=== PATIENT | male | born 1950 | race Hispanic/Latino ===

== ENCOUNTER 2016-12-14 06:03 | Observation (INO) | payer MEDICARE ==
[2016-11-30 13:37] VITALS: BMI 22.2
[2016-12-14] MEDS ORDERED: Lidocaine 4% (Laryng-O-Jet) Kit MM ONE (07:57)
[2016-12-14] MEDS ORDERED: Succinylcholine 200 mg/10 ml Inj IV ONE (07:57)
[2016-12-14] MEDS ORDERED: Propofol 10 mg/ml Inj (20 ML) ONE (07:57)
[2016-12-14] MEDS ORDERED: Rocuronium 10 mg/ml (5 ml) ONE (07:57)
[2016-12-14] MEDS ORDERED: Lactated Ringer's 1,000 ML IV ONE ×2 (07:59→12:50)
--- NOTE | 2016-12-14 07:59 | CP.PCM.CON ---
History of Present Illness - History of Present Illness History of Present Illness: 66 yo male presents with ongoing LBP x 1 year sudden onset moving furniture radiation to LLE x 6 mos with worsening gait,paresthesias,tripping and Left foot drop 2-3 months ago,seen by PMD and neurologist,EMG LLE + nerve injury,no relief with meds and PT,outpt MRI showing multi level lumbar spondylosis with HNP L4-5,referred to neurosurgery for further eval,denies B/B incontinance or pelvic paresthesias Review of Systems - Review of Systems Systems not reviewed;Unavailable: Acuity of Condition - Cardiovascular Additional comments: Hx Htn,denies CP,arrthymia or PA - Respiratory Additional comments: Hx COPD/heavy Snowmaker Smoker - Musculoskeletal Musculoskeletal: Muscle Weakness, Numbness, Radiating Pain into Limb - Neurological Neurological: As Per HPI Past Patient History - Infectious Disease Hx of Infectious Diseases: None - Tetanus Immunizations Tetanus Immunization: Unknown - Past Medical History & Family History Past Medical History?: Yes - Past Social History Smoking Status: Heavy Smoker > 10 Cigarettes Daily 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,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 Alcohol: > 2 Drinks/Day Drugs: Denies Home Situation {Lives}: With Family Domestic Violence: Negative - CARDIAC Hx Cardiac Disorders: Yes Hx Hypertension: Yes - PULMONARY Hx Respiratory Disorders: Yes Hx Chronic Obstructive Pulmonary Disease (COPD): Yes - NEUROLOGICAL Hx Neurological Disorder: No - HEENT Hx HEENT Problems: No - RENAL Hx Chronic Kidney Disease: No - ENDOCRINE/METABOLIC Hx Endocrine Disorders: No - HEMATOLOGICAL/ONCOLOGICAL Hx Anemia: Yes Hx Blood Transfusions: No - INTEGUMENTARY Hx Dermatological Problems: No - MUSCULOSKELETAL/RHEUMATOLOGICAL Hx Musculoskeletal Disorders: Yes Hx Back Pain: Yes Hx Falls: No - GASTROINTESTINAL Hx Gastrointestinal Disorders: No - GENITOURINARY/GYNECOLOGICAL Hx Genitourinary Disorders: No - PSYCHIATRIC Hx Psychophysiologic Disorder: No Hx Substance Use: No - SURGICAL HISTORY Hx Surgeries: No - ANESTHESIA Hx Anesthesia: No Hx Anesthesia Reactions: No Hx Malignant Hyperthermia: No Has any member of the family had a problem w/ anesthesia?: No Meds Home Medications: Home Medication List Medication Instructions Recorded Confirmed Type Acetaminophen with Codeine 1 tab PO Q6 #20 tab 12/15/16 Rx [Tylenol with Codeine No. 3 300 mg-30 mg] Allergies/Adverse Reactions: Allergies Allergy/AdvReac Type Severity Reaction Status Date / Time No Known Allergies Allergy Verified 04/11/16 22:46 Physical Exam - Constitutional Appears: Well, Non-toxic, No Acute Distress - Head Exam Head Exam: ATRAUMATIC, NORMAL INSPECTION, NORMOCEPHALIC - Eye Exam Eye Exam: EOMI, Normal appearance, PERRL Pupil Exam: NORMAL ACCOMODATION - ENT Exam ENT Exam: Mucous Membranes Moist - Neck Exam Neck exam: Positive for: Normal Inspection - Respiratory Exam Respiratory Exam: Clear to Auscultation Bilateral - Cardiovascular Exam Cardiovascular Exam: REGULAR RHYTHM - GI/Abdominal Exam GI & Abdominal Exam: Normal Bowel Sounds, Soft - Rectal Exam Rectal Exam: Deferred - Extremities Exam Extremities exam: Positive for: pedal pulses present Additional comments: calves soft,NT - Back Exam Back exam: vertebral tenderness - Neurological Exam Neurological exam: Alert, Oriented x3 Additional comments: DAILY x 4 with good strength,left dorsiflexion weakness 2+/5 with decreased sensation left L4-5 dermatome,plantar flexion 5/5,no pelvic paresthesias - Psychiatric Exam Psychiatric exam: Normal Affect, Normal Mood - Skin Skin Exam: Dry, Intact Results - Labs Result Diagrams: 12/15/16 05:00 12/15/16 05:00 Labs: Laboratory Results - last 24 hr 12/14/16 07:20 BBK History Checked No verified bt Assessment & Plan - Assessment and Plan (Free Text) Assessment: 66 yo male with Multi Level lumbar spondylosis,left L4-5 HNP, LLE radiculapathy and Foot Drop Plan: here today for proposed Decompressive Lumbar Laminectomy/Discectomy L4-5 risks and benefits d/w pt,informed that symptoms may or not improve with surgery, expressed understanding and wishes to proceed.
[2016-12-14] MEDS ORDERED: Lidocaine 1% Inj (20ml) ONE (08:02)
[2016-12-14] MEDS ORDERED: Bupivacaine HCl 0.5% PF (30 ml) Inj ONE (08:02)
[2016-12-14] MEDS ORDERED: Thrombin Topical 5,000 IU Spray Kit ONE (08:03)
[2016-12-14] MEDS ORDERED: Absorbable Gelatin Sponge Size 100 ONE (08:03)
[2016-12-14] MEDS ORDERED: Bacitracin Ointment 30 GM TUBE ONE (08:03)
[2016-12-14] MEDS ORDERED: Midazolam 2 MG/2 ML VIAL ONE (08:06)
[2016-12-14] MEDS ORDERED: Bupivacaine 0.5% Inj(30mL) ONE (08:23)
[2016-12-14] MEDS ORDERED: Thrombin Topical 5,000 IU Spray Kit TOP ONE (09:00)
[2016-12-14] MEDS ORDERED: Lidocaine 1% Inj (20ml) IJ ONE (09:00)
[2016-12-14] MEDS ORDERED: Absorbable Gelatin Sponge Size 100 TP ONE (09:00)
[2016-12-14] MEDS ORDERED: ePHEDrine 50 mg/ml Inj ONE (09:19)
[2016-12-14] MEDS ORDERED: Neostigmine Methylsulfate 3mg/3ml Syringe IV ONE ×2 (10:15→10:17)
[2016-12-14] MEDS ORDERED: Bupivacaine 0.5% 50 ML IJ ONE (10:30)
[2016-12-14] MEDS ORDERED: HYDROmorphone 0.5 mg/0.5 ml ISec IVP PRN (10:46)
[2016-12-14] MEDS ORDERED: Oxycodone/Acetaminophen 5/325 mg Tab PO PRN ×2 (12:56→21:19)
[2016-12-14] MEDS: Lactated Ringer's 1,000 ML IV SCH (13:00)
[2016-12-14] MEDS ORDERED: Albuterol 0.083% Inhal Sol (2.5 mg/3 mL) UD INH PRN (13:00)
[2016-12-14] MEDS ORDERED: Pneumococcal 23-Valent Vaccine IM ONE (15:38)
[2016-12-14] MEDS: ceFAZolin 1 GM in Sodium Chloride 0.9% 100 ML IVPB SCH (16:53)
--- NOTE | 2016-12-14 17:48 | CP.PCM.HP ---
History of Present Illness - History of Present Illness History of Present Illness: 66 yo male presents with ongoing LBP x 1 year sudden onset moving furniture radiation to LLE x 6 mos with worsening gait,paresthesias,tripping and Left foot drop 2-3 months ago,seen by PMD and neurologist,EMG LLE + nerve injury,no relief with meds and PT,outpt MRI showing multi level lumbar spondylosis, referred to neurosurgery for further evaluation,denies B/B incontinance or pelvic paresthesias Patient under went to several lumbar laminectomy for decompression. At present in post OP. Present on Admission - Present on Admission Any Indicators Present on Admission: No Review of Systems - Constitutional Constitutional: As Per HPI - EENT Eyes: As Per HPI - Cardiovascular Cardiovascular: As Per HPI - Respiratory Respiratory: As Per HPI - Gastrointestinal Gastrointestinal: As Per HPI - Musculoskeletal Musculoskeletal: As Per HPI - Integumentary Integumentary: As Per HPI - Neurological Neurological: As Per HPI Past Patient History - Past Medical History & Family History Past Medical History?: Yes - Past Social History Smoking Status: Current Some Days Smoker - CARDIAC Hx Cardiac Disorders: Yes Hx Hypertension: Yes - PULMONARY Hx Respiratory Disorders: Yes Hx Chronic Obstructive Pulmonary Disease (COPD): Yes - NEUROLOGICAL Hx Neurological Disorder: No - HEENT Hx HEENT Problems: No - RENAL Hx Chronic Kidney Disease: No - ENDOCRINE/METABOLIC Hx Endocrine Disorders: No - HEMATOLOGICAL/ONCOLOGICAL Hx Anemia: Yes Hx Blood Transfusions: No - INTEGUMENTARY Hx Dermatological Problems: No - MUSCULOSKELETAL/RHEUMATOLOGICAL Hx Musculoskeletal Disorders: Yes Hx Back Pain: Yes Hx Falls: No - GASTROINTESTINAL Hx Gastrointestinal Disorders: No - GENITOURINARY/GYNECOLOGICAL Hx Genitourinary Disorders: No - PSYCHIATRIC Hx Psychophysiologic Disorder: No Hx Substance Use: No - SURGICAL HISTORY Hx Surgeries: No - ANESTHESIA Hx Anesthesia: No Hx Anesthesia Reactions: No Hx Malignant Hyperthermia: No Has any member of the family had a problem w/ anesthesia?: No Meds Allergies/Adverse Reactions: Allergies Allergy/AdvReac Type Severity Reaction Status Date / Time No Known Allergies Allergy Verified 04/11/16 22:46 Physical Exam - Constitutional Appears: In Acute Distress - Head Exam Head Exam: ATRAUMATIC, NORMAL INSPECTION, NORMOCEPHALIC - Eye Exam Eye Exam: Normal appearance - ENT Exam ENT Exam: Mucous Membranes Moist - Respiratory Exam Respiratory Exam: Clear to Auscultation Bilateral - Cardiovascular Exam Cardiovascular Exam: REGULAR RHYTHM, +S1, +S2 - GI/Abdominal Exam GI & Abdominal Exam: Normal Bowel Sounds - Neurological Exam Neurological exam: Alert, Oriented x3 - Psychiatric Exam Psychiatric exam: Normal Affect - Skin Skin Exam: Normal Color Results - Vital Signs Recent Vital Signs: Last Vital Signs Temp 98.4 F 12/14/16 17:00 Pulse 73 12/14/16 17:31 Resp 20 12/14/16 17:00 BP 134/70 12/14/16 17:00 Pulse Ox 93 L 12/14/16 17:00 - Labs Labs: Laboratory Results - last 24 hr 12/14/16 12/14/16 07:20 07:36 Blood Type O POSITIVE Blood Type Confirm O POSITIVE Antibody Screen Negative BBK History Checked No verified bt Assessment & Plan (1) Neuropathy Status: Chronic (2) COPD (chronic obstructive pulmonary disease) Status: Chronic (3) Cord compression Status: Acute (4) Sciatica Status: Chronic (5) Radiculopathy Status: Acute - Assessment and Plan (Free Text) Plan: Post decompression will follow with surgery
[2016-12-15 00:08] VITALS: RESP 18
[2016-12-15] MEDS: ceFAZolin 1 GM in Sodium Chloride 0.9% 100 ML IVPB SCH ×2 (01:05→09:40)
[2016-12-15] MEDS: Lactated Ringer's 1,000 ML IV SCH (03:30)
[2016-12-15 06:48] LABS: BLOOD UREA NITROGEN 15 mg/dl (9-20); CALCIUM 9.2 mg/dL (8.4-10.2); CARBON DIOXIDE 22 mmol/L (22-30); CHLORIDE 106 mmol/L (98-107); GFR AFRICAN-AMERICAN > 60; GLUCOSE,RANDOM 133 mg/dL (75-110); POTASSIUM 4.4 MMOL/L (3.6-5.0); SODIUM 139 mmol/l (132-148)
[2016-12-15 06:55] LABS: BASO % 0.2 % (0.0-2.0); EOS % 0.1 % (0.0-4.0); HEMATOCRIT 37.7 % (35.0-51.0); LYMPH # 1.1 K/uL (1.0-4.3); LYMPH % 7.6 % (20.0-40.0); MEAN CELL VOLUME 98.9 fl (80.0-94.0); MEAN CORPUSCULAR HEMOGLOBIN 33.2 pg (27.0-31.0); MEAN CORPUSCULAR HGB CONC 33.6 g/dL (33.0-37.0); MEAN PLATELET VOLUME 8.5 fl (7.2-11.7); MONO # 0.9 K/uL (0.0-0.8); MONO % 6.4 % (0.0-10.0); NEUT % 85.7 % (50.0-75.0); PLATELET COUNT 179 K/uL (130-400); RED CELL DISTRIBUTION WIDTH 12.5 % (11.5-14.5)
--- NOTE | 2016-12-15 08:34 | OP ---
DOS: 12/14/16 PREOPERATIVE DIAGNOSES: Lumbar spondylosis, foramen disk at L4-L5. POSTOPERATIVE DIAGNOSES: Lumbar spondylosis, foramen disk at L4-L5. PROCEDURE: Left L4-L5 hemilaminotomy, medial facetectomy, decompression, and removal of foramen disk. SURGEON: Dr. Cosby. DEXTRINE MIXER: LARRY Santiago. Chelsey Mallory is a physician industrial hire sales assistant, who stayed throughout the case from the beginning to the end. DESCRIPTION OF PROCEDURE: The patient was brought to the operating room, administered with general endotracheal anesthesia, placed in a prone position on the Jef table. Care was taken to protect all pressure points. Back of the lumbar area thoroughly prepped and draped in sterile manner after marking was consistent for lumbar laminectomy. After prepping and draping the area, skin had been incised. Bleeding skins had been controlled with bipolar rotary lithographic press operator. After using the Bovie rotary lithographic press operator, paraspinal muscles had been detached, attachments of spinous process, lamina of L4-L5 on the left side. A Ginny retractor had been applied to alter the facet joint of L4-L5 and a fluoroscopy had been used in order to confirm this level. By using a high-speed drill, the lamina of L4-L5, medial part of the facets of L4-L5 had been drilled. Drilling was continued until the top and bottom of the ligamentum flavum has seen. Drilling was also continued on the medial part of the facets until the turn of the ligamentum flavum was seen. Once this has been done below the lamina, medial part of the facets and ligamentum flavum had been removed. Further medial facetectomy and laminotomy had been performed until the pedicle of L4 has been visualized. At this point by microscopic , the neural tube was retracted medially. Annulus has been incised in a very lateral part of the disk space and by using various size of pituitary rongeurs and curettes, the foramen disk has been removed. Part of it was found to be hard, part of it was soft, soft material has been removed. After that, hemostasis was best achieved. Fascia across the interspinous ligaments, spinous process with 1-Vicryl, subcutaneous tissue with 3-Vicryl. Skin had been closed by using stitches. The patient tolerated the procedure. After procedure, mobilized to the recovery room in stabilized condition. Josh Cosby MD
--- NOTE | 2016-12-15 08:43 | CP.PCM.PN ---
Subjective - Date & Time of Evaluation Date of Evaluation: 12/15/16 Time of Evaluation: 07:40 - Subjective Subjective: pt c/o incisional pain partially controlled with PO pain meds,OOB/asst,PT eval today,LLE symptoms improved,voiding without c/o,+ flatus,yesenia diet,no evnts last pm noted,denies pelvic paresthesias,B/B incontinance Objective - Vital Signs/Intake and Output Vital Signs (last 24 hours): Temp Pulse Resp BP Pulse Ox 98.2 F 69 18 112/59 L 92 L 12/15/16 08:00 12/15/16 08:00 12/15/16 08:00 12/15/16 08:00 12/15/16 08:00 Intake and Output: 12/15/16 12/15/16 06:59 18:59 Intake Total 1020 Output Total 750 Balance 270 - Medications Medications: Current Medications Albuterol Sulfate (Albuterol 0.083% Inhal Sabi (2.5 Mg/3 Ml) Ud) 2.5 mg INH RQ4 PRN PRN Reason: Shortness of Breath Cholecalciferol (Vitamin D) 2,000 iu PO DAILY [facility] Docusate Sodium (Colace) 100 mg PO BID [facility] Last Admin: 12/14/16 16:53 Dose: 100 mg Enoxaparin Sodium (Lovenox) 40 mg SC DAILY [facility] PRN Reason: Protocol Famotidine (Pepcid) 20 mg PO DAILY [facility] Lactated Ringer's (Lactated Ringer's) 1,000 mls @ 75 mls/hr IV .[id number] [facility] Last Admin: 12/15/16 03:30 Dose: 75 mls/hr Cefazolin Sodium 1 gm/ Sodium (Chloride) 100 mls @ 100 mls/hr IVPB Q8 [facility] Stop: 12/15/16 17:00 Last Admin: 12/15/16 01:05 Dose: 100 mls/hr Morphine Sulfate (Morphine) 2 mg IVP Q4 PRN PRN Reason: Pain, severe (8-10) Nicotine (Nicoderm Cq) 1 patch TD DAILY [facility] Oxycodone/Acetaminophen (Percocet 5/325 Mg Tab) 2 tab PO Q4 PRN PRN Reason: Pain, moderate (4-7) Stop: 09/09/17 21:20 Last Admin: 12/14/16 22:19 Dose: 2 tab - Labs Labs: 12/15/16 05:00 12/15/16 05:00 - Constitutional Appears: Well, Non-toxic, No Acute Distress - Head Exam Head Exam: ATRAUMATIC, NORMAL INSPECTION, NORMOCEPHALIC - Eye Exam Eye Exam: EOMI, Normal appearance, PERRL Pupil Exam: NORMAL ACCOMODATION - ENT Exam ENT Exam: Mucous Membranes Moist - Respiratory Exam Respiratory Exam: Clear to Ausculation Bilateral - Cardiovascular Exam Cardiovascular Exam: REGULAR RHYTHM - GI/Abdominal Exam GI & Abdominal Exam: Soft - Rectal Exam Rectal Exam: Deferred - Extremities Exam Extremities Exam: Normal Inspection Additional comments: calves soft/NT,+ SCD's - Back Exam Additional comments: wound C/D/I,no drainage,abdominal binder patent - Neurological Exam Neurological Exam: Alert, Oriented x3 Additional comments: DAILY x 4 antigravity with good strength,left dorsiflexion improved 3+ to 4/5, residual decreased sensation LLE,no pelvic paresthesias - Psychiatric Exam Psychiatric exam: Normal Affect, Normal Mood - Skin Skin Exam: Dry, Intact Assessment and Plan - Assessment and Plan (Free Text) Assessment: 66 yo male POD#1 Left L4-5 Hemilaminotomy,Medial Facetectomy for Lumbar Spondylosis/HNP and Left Foot Drop,Neurologically stable Plan: PT eval today,pain control,possible d/c home today with F/u with Dr. Cosby.All d/ w attd
[2016-12-15] MEDS ORDERED: Enoxaparin 40 mg Syringe SC SCH (09:00)
[2016-12-15 09:16] LABS: NEUTROPHIL 89 % (42-75); TOTAL CELLS COUNTED 100
[2016-12-15 09:23] LABS: LARGE PLATELETS PRESENT; PLATELET CLUMPS PRESENT
--- NOTE | 2016-12-15 12:24 | CP.PCM.DIS ---
Provider - Provider Date of Admission: 12/14/16 11:30 Attending physician: Emery Willingham MD Primary care physician: Emery Willingham MD Time Spent in preparation of Discharge (in minutes): 30 Diagnosis - Discharge Diagnosis (1) Neuropathy Status: Chronic (2) COPD (chronic obstructive pulmonary disease) Status: Chronic (3) Cord compression Status: Acute (4) Sciatica Status: Chronic (5) Radiculopathy Status: Acute Hospital Course - Lab Results Lab Results: Most Recent Lab Values WBC 14.0 K/uL (4.8-10.8) H D 12/15/16 05:00 RBC 3.82 Mil/uL (4.40-5.90) L 12/15/16 05:00 Hgb 12.7 g/dL (12.0-18.0) D 12/15/16 05:00 Hct 37.7 % (35.0-51.0) 12/15/16 05:00 MCV 98.9 fl (80.0-94.0) H 12/15/16 05:00 MCH 33.2 pg (27.0-31.0) H 12/15/16 05:00 MCHC 33.6 g/dL (33.0-37.0) 12/15/16 05:00 RDW 12.5 % (11.5-14.5) 12/15/16 05:00 Plt Count 179 K/uL (130-400) 12/15/16 05:00 MPV 8.5 fl (7.2-11.7) 12/15/16 05:00 Neut % (Auto) 85.7 % (50.0-75.0) H 12/15/16 05:00 Lymph % (Auto) 7.6 % (20.0-40.0) L 12/15/16 05:00 [place] % (Auto) 6.4 % (0.0-10.0) 12/15/16 05:00 Eos % (Auto) 0.1 % (0.0-4.0) 12/15/16 05:00 Baso % (Auto) 0.2 % (0.0-2.0) 12/15/16 05:00 Neut # 12.0 K/uL (1.8-7.0) H 12/15/16 05:00 Lymph # 1.1 K/uL (1.0-4.3) 12/15/16 05:00 [place] # 0.9 K/uL (0.0-0.8) H 12/15/16 05:00 Eos # 0.0 K/uL (0.0-0.7) 12/15/16 05:00 Baso # 0.0 K/uL (0.0-0.2) 12/15/16 05:00 Neutrophils % (Manual) 89 % (42-75) H 12/15/16 05:00 Lymphocytes % (Manual) 8 % (20-50) L 12/15/16 05:00 Monocytes % (Manual) 3 % (0-10) 12/15/16 05:00 Platelet Estimate Normal (NORMAL) 12/15/16 05:00 Plt Clumps, EDTA Present 12/15/16 05:00 Large Platelets Present 12/15/16 05:00 Hypochromasia (manual) Slight 12/15/16 05:00 Sodium 139 mmol/l (132-148) 12/15/16 05:00 Potassium 4.4 MMOL/L (3.6-5.0) 12/15/16 05:00 Chloride 106 mmol/L (98-107) 12/15/16 05:00 Carbon Dioxide 22 mmol/L (22-30) 12/15/16 05:00 Anion Gap 16 (10-20) 12/15/16 05:00 BUN 15 mg/dl (9-20) 12/15/16 05:00 Creatinine 0.7 mg/dL (0.8-1.5) L 12/15/16 05:00 Est GFR ( Amer) > 60 12/15/16 05:00 Est GFR (Non-Af Amer) > 60 12/15/16 05:00 Random Glucose 133 mg/dL (75-110) H 12/15/16 05:00 Calcium 9.2 mg/dL (8.4-10.2) 12/15/16 05:00 Blood Type O POSITIVE 12/14/16 07:20 Blood Type Confirm O POSITIVE 12/14/16 07:36 Antibody Screen Negative 12/14/16 07:20 BBK History Checked No verified bt 12/14/16 07:20 - Hospital Course Hospital Course: Patient in SP surgery Doing well comfortable Cleared by surgery for dc Discharge Exam - Head Exam Head Exam: ATRAUMATIC, NORMAL INSPECTION, NORMOCEPHALIC - Eye Exam Eye Exam: Normal appearance - Neck Exam Neck exam: Full Rom - Respiratory Exam Respiratory Exam: Clear to PA & Lateral - Cardiovascular Exam Cardiovascular Exam: REGULAR RHYTHM, +S1, +S2 - GI/Abdominal Exam GI & Abdominal Exam: Normal Bowel Sounds - Extremities Exam Extremities exam: normal inspection - Neurological Exam Neurological exam: Alert, CN II-XII Intact, Oriented x3, Reflexes Normal - Psychiatric Exam Psychiatric exam: Normal Affect - Skin Skin Exam: Normal Color Discharge Plan - Follow Up Plan Condition: GOOD Disposition: HOME/ ROUTINE Referrals: Emery Willingham MD [Primary Care Provider] -
[2016-12-15] MEDS ORDERED: B12INJ IM SCH (12:30)
[2016-12-15 12:41] VITALS: BP 122/54; PULSE 64; TEMP 98; O2SAT 96
--- NOTE | 2016-12-15 14:51 | RAD ---
PROCEDURE: Intraoperative Fluoroscopy. No AP HISTORY: FLUORO FINDINGS: Fluoroscopic assistance was provided for lumbar surgical procedure.
[2016-12-16] MEDS ORDERED: B12 PO SCH (09:00)
[2016-12-16] MEDS ORDERED: [UNRECOGNIZED DRUG - OTHER] PO SCH (09:00)
[2016-12-16] MEDS ORDERED: Patient's Own Med (Cholecalciferol (Vitamin D3) [Vitamin D3] 2,000 UNIT) PO SCH (09:00)
== END 2016-12-15 13:55 | disposition home health service (06) ==
LOC: H.OPSURG 06:03 → H.TEL 11:30 → INTOOBSV 11:30
PROVIDERS: ADMIT Internal Medicine; ATTEND Internal Medicine
DX: M51.16 Intervertebral disc disorders with radiculopathy, lumbar region (principal); M47.26 Other spondylosis with radiculopathy, lumbar region; M21.372 Foot drop, left foot; G62.9 Polyneuropathy, unspecified; I10 Essential (primary) hypertension; J44.9 Chronic obstructive pulmonary disease, unspecified; F17.210 Nicotine dependence, cigarettes, uncomplicated; Z23 Encounter for immunization
CPT/HCPCS: 36415; 63030; 63035; 76000; 80048; 85025; 86850; 86900; 90732; 97116; 97161; C2615; G0009; G0378; G8978; G8979; G8980; J0330; J0690; J1650; J2001; J2250; J2405; J2704; J2710; J3010; J7030; J7120

== ENCOUNTER 2017-10-02 08:37 | Emergency (ER) | payer MEDICARE ==
[2017-10-02 08:45] VITALS: BMI 24.2
[2017-10-02] MEDS ORDERED: Albuterol-Ipratrop 3 mg / 0.5 (3 ml) UD IH STA ×3 (08:48→09:29)
[2017-10-02] MEDS ORDERED: Albuterol 0.042% Inhal Sol (1.25 mg/3 mL) UD ONE (08:53)
[2017-10-02] MEDS ORDERED: Ipratropium 0.02% Inhal Soln (0.5 mg/2.5 ml) UD IH ONE ×2 (08:54→09:47)
--- NOTE | 2017-10-02 08:55 | ED PDOC ---
HPI: SOB/CHF/COPD Time Seen by Provider: 10/02/17 08:40 Chief Complaint (Nursing): Shortness Of Breath Chief Complaint (Provider): Shortness Of Breath History Per: Patient History/Exam Limitations: no limitations Onset/Duration Of Symptoms: Days (x2) Current Symptoms Are (Timing): Still Present Additional Complaint(s): 66 year old male with medical history of COPD, presents to the emergency department with a complaint of shortness of breath and wheezing associated with productive cough with clear sputum ongoing for 2 days. He denies any fever, chills or chest pain. Patient reports using home nebulizer treatments without relief. PMD: Emery Willingham MD Past Medical History Reviewed: Historical Data, Nursing Documentation, Vital Signs Vital Signs: Last Vital Signs Temp 97.9 F 10/02/17 08:45 Pulse 75 10/02/17 09:13 Resp 14 10/02/17 09:13 BP 125/67 10/02/17 09:13 Pulse Ox 92 L 10/02/17 10:04 - Medical History PMH: Anemia, COPD, HTN Denies: Chronic Kidney Disease - Surgical History Other surgeries: back - Family History Family History: States: Unknown Family Hx - Home Medications Home Medications: Ambulatory Orders Medication Instructions Recorded Albuterol 0.083% [Albuterol 3 ml IH Q6 #1 neb 10/02/17 Sulfate 3 Ml] Albuterol HFA [Ventolin HFA 90 2 puff IH Q4H #1 puff 10/02/17 mcg/actuation (8 g)] Albuterol/Ipratropium [Duoneb 3 3 ml INH PRN PRN 10/02/17 mg/0.5 mg (3 ml) UD] Azithromycin [Zithromax] 250 mg PO DAILY #6 tab 10/02/17 Prednisone 50 mg PO DAILY #5 tab 10/02/17 - Allergies Allergies/Adverse Reactions: Allergies Allergy/AdvReac Type Severity Reaction Status Date / Time No Known Allergies Allergy Verified 10/02/17 08:42 Review of Systems ROS Statement: Except As Marked, All Systems Reviewed And Found Negative Constitutional: Negative for: Fever, Chills Cardiovascular: Negative for: Chest Pain Respiratory: Positive for: Cough, Shortness of Breath, Sputum (clear), Wheezing Physical Exam - Reviewed Nursing Documentation Reviewed: Yes Vital Signs Reviewed: Yes - Physical Exam Appears: Positive for: In Acute Distress Cardiovascular/Chest: Positive for: Regular Rate, Rhythm Respiratory: Positive for: Rhonchi, Wheezing (expiratory bilaterally), Respiratory Distress (mild) Gastrointestinal/Abdominal: Positive for: Normal Exam, Soft. Negative for: Tenderness Extremity: Positive for: Normal ROM (upper/lower). Negative for: Pedal Edema ( bilaterally), Calf Tenderness (bilaterally) Neurologic/Psych: Positive for: Alert, Oriented (x3). Negative for: Motor/ Sensory Deficits - Laboratory Results Result Diagrams: 10/02/17 09:00 10/02/17 09:00 - ECG O2 Sat by Pulse Oximetry: 92 (NC) Pulse Ox Interpretation: Normal - Progress Re-evaluation Time: 10:02 Condition: Improved Medical Decision Making Medical Decision Making: Initial Impression: Shortness of breath; Wheezing Initial Plan: * EKG * CMP * CBC * CXR * Duoneb 3ml INH * Solu-medrol 125mg IVP Time: 0850 --Patient receiving O2 via NC. Scribe Attestation: Documented by Louise Parker, acting as a scribe for Delano De Oliveira MD. Provider Scribe Attestation: All medical record entries made by the Scribe were at my direction and personally dictated by me. I have reviewed the chart and agree that the record accurately reflects my personal performance of the history, physical exam, medical decision making, and the department course for this patient. I have also personally directed, reviewed, and agree with the discharge instructions and disposition. Disposition - Clinical Impression Clinical Impression: COPD (chronic obstructive pulmonary disease) - Patient ED Disposition Is Patient to be Admitted: No Counseled Patient/Family Regarding: Studies Performed, Diagnosis, Need For Followup, Rx Given - Disposition Referrals: Emery Willingham MD [Family Provider] - Disposition: Routine/Home Disposition Time: 10:02 Condition: FAIR Prescriptions: Albuterol 0.083% [Albuterol Sulfate 3 Ml] 3 ml IH Q6 #1 neb Albuterol HFA [Ventolin HFA 90 mcg/actuation (8 g)] 2 puff IH Q4H #1 puff Azithromycin [Zithromax] 250 mg PO DAILY #6 tab Prednisone 50 mg PO DAILY #5 tab Instructions: Exacerbation of COPD Forms: [employer] (Czech)
[2017-10-02] MEDS ORDERED: Azithromycin 500 MG in Sodium Chloride 0.9% 250 ML IVPB STA (09:14)
[2017-10-02 09:15] LABS: BASO # 0.1 K/uL (0.0-0.2); EOS # 0.6 K/uL (0.0-0.7); EOS % 6.7 % (0.0-4.0); HEMOGLOBIN 15.5 g/dL (12.0-18.0); LYMPH # 1.4 K/uL (1.0-4.3); LYMPH % 16.1 % (20.0-40.0); MEAN CELL VOLUME 100.3 fl (80.0-94.0); MEAN CORPUSCULAR HEMOGLOBIN 34.4 pg (27.0-31.0); MEAN CORPUSCULAR HGB CONC 34.3 g/dL (33.0-37.0); MEAN PLATELET VOLUME 8.5 fl (7.2-11.7); MONO # 0.6 K/uL (0.0-0.8); MONO % 6.4 % (0.0-10.0); NEUT # 6.2 K/uL (1.8-7.0); NEUT % 69.8 % (50.0-75.0); RBC 4.49 Mil/uL (4.40-5.90); RED CELL DISTRIBUTION WIDTH 12.6 % (11.5-14.5); WHITE BLOOD COUNT 8.9 K/uL (4.8-10.8)
[2017-10-02 09:28] LABS: ALB/GLOB RATIO 1.2 (1.0-2.1); ALBUMIN 4.4 g/dL (3.5-5.0); ALT/SGPT 19 U/L (21-72); AST/SGOT 21 U/L (17-59); BLOOD UREA NITROGEN 14 mg/dl (9-20); CALCIUM 9.6 mg/dL (8.4-10.2); GFR AFRICAN-AMERICAN > 60; GFR NON-AFRICAN AMERICAN > 60
[2017-10-02] MEDS ORDERED: Albuterol 0.083% Inhal Sol (2.5 mg/3 mL) UD ONE (09:47)
[2017-10-02 10:50] VITALS: BP 145/81
--- NOTE | 2017-10-02 11:03 | CARD ---
APPROVED REPORT EKG Measurement Heart [id number] <Conclusion> Sinus rhythm with frequent APC's Otherwise normal ECG
[2017-10-02 11:15] VITALS: PULSE 80; RESP 20; TEMP 98.2; O2SAT 99
--- NOTE | 2017-10-02 14:12 | RAD ---
HISTORY: cough COMPARISON: Chest radiographs 10/27/2016. FINDINGS: LUNGS: No active pulmonary disease. PLEURA: No significant pleural effusion identified, no pneumothorax apparent. CARDIOVASCULAR: Normal. OSSEOUS STRUCTURES: No significant abnormalities. VISUALIZED UPPER ABDOMEN: Normal. OTHER FINDINGS: None. IMPRESSION: No interval acute cardiopulmonary disease appreciated.
== END 2017-10-02 10:56 | disposition home or self-care (01) ==
LOC: H.ER 08:37
DX: J44.9 Chronic obstructive pulmonary disease, unspecified (principal); I10 Essential (primary) hypertension
CPT/HCPCS: 71045; 80053; 85025; 87040; 93005; 94640; 94660; 96365; 96375; 99285; J0456; J2930

== ENCOUNTER 2018-04-03 11:11 | Inpatient (IN) | payer MEDICARE ==
[2018-04-03 11:11] VITALS: BMI 24.2
[2018-04-03] MEDS ORDERED: Magnesium Sulfate 2 gm/50 ml 2 GM/50 ML BAG IVPB STA (11:31)
[2018-04-03] MEDS ORDERED: Albuterol-Ipratrop 3 mg / 0.5 (3 ml) UD INH STA ×3 (11:31→12:49)
[2018-04-03] MEDS ORDERED: Magnesium Sulfate 2 gm/50 ml 2 GM/50 ML BAG ONE (11:47)
[2018-04-03] MEDS ORDERED: Albuterol-Ipratrop 3 mg / 0.5 (3 ml) UD ONE ×2 (11:47→12:50)
[2018-04-03 12:27] LABS: BASO % 0.4 % (0.0-2.0); EOS % 0.1 % (0.0-4.0); HEMOGLOBIN 14.1 g/dL (12.0-18.0); LYMPH # 0.3 K/uL (1.0-4.3); LYMPH % 8.5 % (20.0-40.0); MEAN CELL VOLUME 98.8 fl (80.0-94.0); MEAN CORPUSCULAR HEMOGLOBIN 33.1 pg (27.0-31.0); MEAN CORPUSCULAR HGB CONC 33.5 g/dL (33.0-37.0); MONO # 0.4 K/uL (0.0-0.8); MONO % 10.2 % (0.0-10.0); NEUT # 3.1 K/uL (1.8-7.0); NEUT % 80.8 % (50.0-75.0); PLATELET COUNT 135 K/uL (130-400); RBC 4.25 Mil/uL (4.40-5.90); RED CELL DISTRIBUTION WIDTH 13.3 % (11.5-14.5); WHITE BLOOD COUNT 3.9 K/uL (4.8-10.8)
[2018-04-03 13:02] LABS: BLOOD UREA NITROGEN 20 mg/dl (9-20); CALCIUM 8.9 mg/dL (8.4-10.2); GFR NON-AFRICAN AMERICAN > 60
--- NOTE | 2018-04-03 13:03 | ED PDOC ---
HPI: SOB/CHF/COPD Time Seen by Provider: 04/03/18 11:24 Chief Complaint (Nursing): Shortness Of Breath Chief Complaint (Provider): Shortness Of Breath History Per: Patient History/Exam Limitations: no limitations Onset/Duration Of Symptoms: Days (x2 days) Current Symptoms Are (Timing): Still Present Associated Symptoms: denies: Fever, Chills, Chest Pain Additional Complaint(s): Rios Lizama is a 67 year old male with a past medical history of COPD, who presents to the emergency department complaining of worsening shortness of breath. Patient states that his episode feels like previous COPD exacerbation episodes. He denies having any cardiac or intubation history. Patient reports that he has never been hosptialized over night for COPD exacerbation before. He denies any fever, cough, chills, fever, or chest pain. PMD: Nav Dickens Past Medical History Reviewed: Historical Data, Nursing Documentation, Vital Signs Vital Signs: Last Vital Signs Temp 98.7 F 04/03/18 12:57 Pulse 88 04/03/18 12:57 Resp 18 04/03/18 12:57 BP 168/89 H 04/03/18 11:19 Pulse Ox 90 L 04/03/18 12:57 - Medical History PMH: Anemia, COPD, HTN Denies: Chronic Kidney Disease - Surgical History Surgical History: No Surg Hx - Family History Family History: States: Unknown Family Hx - Home Medications Home Medications: Ambulatory Orders Medication Instructions Recorded RX: Albuterol HFA [Ventolin HFA 90 2 puff IH Q4H #1 puff 10/02/17 mcg/actuation (8 g)] RX: Ipratropium 0.02% [Atrovent] 0.5 mg IH Q12 #1 neb 10/02/17 RX: Umeclidinium Brm/Vilanterol Tr 1 puff INH PRN PRN 04/03/18 [Anoro Ellipta 62.5-25 Mcg INH] Methylprednisolone [Medrol Dose 4 mg PO ASDIR #21 mg 04/06/18 Pack (21 tabs)] RX: Azithromycin [Zithromax] 250 mg PO DAILY #2 tab 04/06/18 - Allergies Allergies/Adverse Reactions: Allergies Allergy/AdvReac Type Severity Reaction Status Date / Time No Known Allergies Allergy Verified 04/03/18 11:18 Review of Systems ROS Statement: Except As Marked, All Systems Reviewed And Found Negative Constitutional: Negative for: Fever, Chills Cardiovascular: Negative for: Chest Pain Respiratory: Positive for: Shortness of Breath. Negative for: Cough Physical Exam - Reviewed Nursing Documentation Reviewed: Yes Vital Signs Reviewed: Yes - Physical Exam Appears: Positive for: No Acute Distress Head Exam: Positive for: ATRAUMATIC, NORMOCEPHALIC Skin: Positive for: Normal Color Eye Exam: Positive for: Normal appearance Cardiovascular/Chest: Positive for: Regular Rate, Rhythm. Negative for: Murmur Respiratory: Positive for: Decreased Breath Sounds (decreased airway entry), Wheezing (bilaterally), Other (desaturation to 93% on RA ) Neurologic/Psych: Positive for: Alert, Oriented - Laboratory Results Result Diagrams: 04/06/18 06:00 04/06/18 06:00 - ECG O2 Sat by Pulse Oximetry: 90 (RA) Pulse Ox Interpretation: Normal Medical Decision Making Medical Decision Making: Time: 1129 A/P: Work up for COPD exacerbation vs. pulmonary infectious process. --BMP --Troponin I --CBC with differential --Magnesium --Influenza A B --EKG --Solu-medrol 125 mg IVP --Peak flow Pre/post tx x3 --Albuterol 3 ml INH x3 --Chest x-ray 1400 Pt continues to have O2 Sat of 88% despite 4 duonebs, solumedrol, and magnesium. Pt to be admitted to the telemetry unit under Dr. Simmons (PMD Dr. Dickens). Pt started on Azithromycin. Scribe Attestation: Documented by Jorge A Perkins , acting as a scribe for Jeane Sousa MD. Provider Scribe Attestation: All medical record entries made by the Scribe were at my direction and personally dictated by me. I have reviewed the chart and agree that the record accurately reflects my personal performance of the history, physical exam, medical decision making, and the department course for this patient. I have also personally directed, reviewed, and agree with the discharge instructions and disposition. Disposition - Clinical Impression Clinical Impression: COPD (chronic obstructive pulmonary disease), Acute exacerbation of chronic obs tructive pulmonary disease (COPD) - Disposition Disposition Time: 14:00 Condition: STABLE
--- NOTE | 2018-04-03 13:49 | RAD ---
Date of service: 04/03/2018 HISTORY: possible admission COMPARISON: Portable chest 10/02/2017. FINDINGS: LUNGS: No active pulmonary disease. PLEURA: No significant pleural effusion identified, no pneumothorax apparent. CARDIOVASCULAR: No aortic atherosclerotic calcification present. Normal cardiac size. No pulmonary vascular congestion. OSSEOUS STRUCTURES: No significant abnormalities. VISUALIZED UPPER ABDOMEN: Normal. OTHER FINDINGS: None. IMPRESSION: No interval acute cardiopulmonary disease appreciated.
[2018-04-03 13:57] LABS: LYMPHOCYTE 10 % (20-50); MONOCYTE 9 % (0-10); NEUTROPHIL 81 % (42-75); PLATELET ESTIMATE NORMAL (NORMAL); TOTAL CELLS COUNTED 100
[2018-04-03] MEDS ORDERED: Azithromycin 500 MG in Sodium Chloride 0.9% 250 ML IVPB STA (14:02)
[2018-04-03] MEDS ORDERED: Pantoprazole 40 mg EC Tab PO SCH (14:30)
[2018-04-03] MEDS ORDERED: Albuterol 0.083% Inhal Sol (2.5 mg/3 mL) UD INH PRN (14:34)
[2018-04-03] MEDS ORDERED: Azithromycin 500 MG IV IVPB ONE (14:40)
[2018-04-03 15:04] LABS: ABG ALLEN TEST YES; ARTERIAL BLOOD GAS HCO3 23.9 mmol/L (21-28); ARTERIAL BLOOD GAS HEMOGLOBIN 14.5 g/dL (11.7-17.4); ARTERIAL BLOOD GAS O2 CAPACITY 19.5 mL/dL (16-24); ARTERIAL BLOOD GAS O2 CONTENT 18.4 ML/dL (15-23); ARTERIAL BLOOD GAS O2 SAT 94.4 % (95-98); ARTERIAL BLOOD GAS PCO2 34 mm/Hg (35-45); ARTERIAL BLOOD GAS PH 7.43 (7.35-7.45); ARTERIAL BLOOD GAS PO2 61 mm/Hg (80-100); ARTERIAL BLOOD GAS TCO2 23.6 mmol/L (22-28)
--- NOTE | 2018-04-03 15:12 | CP.PCM.HP ---
<Da Kiran - Last Filed: 04/03/18 15:31> History of Present Illness - History of Present Illness History of Present Illness: 67 y/o male with PMHx of COPD presents to ED complaining of worsening shortness of breath for last 2 days. Dyspnea started 2 days ago, 6 am in the morning, with associated dry cough which progressively worsened and not alleviated with Anoro inhaler or albuterol nebulizer. Patient also had subjective fever, episodes of diaphoresis and chest tightness for last 1-2 days. Patient had 1 episode of vomiting and loose stool on 04/02 morning which resolved. Patient also reports SOB on climbing 2 flights of stairs which he was previously was able to. Sick contact, who had URI/sinusitis 1 week ago. Denies any recent travel. Denies any dizziness, CP, abdominal pain, nausea, vomiting, diarrhea, constipation or weakness. PMD: Dr. Dickens PMHx: COPD, HTN(Patient states he has white coat HTN, also reports he does not want to take pills and prefers to eat low salt diet) PSHx: Back surgery 12/2016 Allergies: NKDA Medications: Anora inhaler, Albuterol nebulizer Social Hx: 1.5 PPD x 49 years, Social alcohol (2-3 beers on weekend), Denies drug use F/H: Mother - Bone Ca, Grandfather and Grandmother with unknown Ca ED Course Vitals: Temp 98.7, HR 88, BP 154/71, O2 sat 91% on 2L CBC wbc 3.9, HgB 14.1 plt 135, CMP unremarkable, Troponin 0.0680, Influenza A/B: Negative S/P Duoneb x 3, Mg suld 2 gm, Azithromycin 500 mg, solumedrol 125 mg in ED CXR: No acute infiltrates Present on Admission - Present on Admission Any Indicators Present on Admission: No History of DVT/PE: No History of Uncontrolled Diabetes: No Urinary Catheter: No Decubitus Ulcer Present: No Review of Systems - Review of Systems Systems not reviewed;Unavailable: Respiratory Distress - Constitutional Constitutional: Headache. absent: Fever - EENT Eyes: absent: Blurred Vision, Change in Vision - Cardiovascular Cardiovascular: Diaphoresis, Dyspnea, Dyspnea on Exertion. absent: Chest Pain, Chest Pain at Rest, Palpitations, Radiating Pain - Respiratory Respiratory: Cough, Dyspnea, Dyspnea on Exertion, Chest Congestion - Gastrointestinal Gastrointestinal: absent: Abdominal Pain, Diarrhea, Nausea, Vomiting - Genitourinary Genitourinary: absent: Change in Urinary Stream - Neurological Neurological: Headaches. absent: Dizziness, Numbness, Weakness Past Patient History - Infectious Disease Hx of Infectious Diseases: None - Tetanus Immunizations Tetanus Immunization: Unknown - Past Medical History & Family History Past Medical History?: Yes - Past Social History Smoking Status: Heavy Smoker > 10 Cigarettes Daily - CARDIAC Hx Hypertension: Yes - PULMONARY Hx Chronic Obstructive Pulmonary Disease (COPD): Yes - NEUROLOGICAL Hx Neurological Disorder: No - HEENT Hx HEENT Problems: No - RENAL Hx Chronic Kidney Disease: No - ENDOCRINE/METABOLIC Hx Endocrine Disorders: No - HEMATOLOGICAL/ONCOLOGICAL Hx Anemia: Yes - INTEGUMENTARY Hx Dermatological Problems: No - MUSCULOSKELETAL/RHEUMATOLOGICAL Hx Musculoskeletal Disorders: Yes Hx Back Pain: Yes Hx Falls: No - GASTROINTESTINAL Hx Gastrointestinal Disorders: No - GENITOURINARY/GYNECOLOGICAL Hx Genitourinary Disorders: No - PSYCHIATRIC Hx Psychophysiologic Disorder: No Hx Substance Use: No - SURGICAL HISTORY Hx Surgeries: No - ANESTHESIA Hx Anesthesia: No Hx Anesthesia Reactions: No Hx Malignant Hyperthermia: No Meds Allergies/Adverse Reactions: Allergies Allergy/AdvReac Type Severity Reaction Status Date / Time No Known Allergies Allergy Verified 04/03/18 11:18 Physical Exam - Constitutional Appears: In Acute Distress - Head Exam Head Exam: ATRAUMATIC, NORMOCEPHALIC - Eye Exam Eye Exam: EOMI, Normal appearance Pupil Exam: NORMAL ACCOMODATION - ENT Exam ENT Exam: Mucous Membranes Moist - Neck Exam Neck exam: Positive for: Full Rom, Normal Inspection. Negative for: Tenderness, Thyromegaly - Respiratory Exam Respiratory Exam: Decreased Breath Sounds, Prolonged Expiratory Phase, Wheezes. absent: Rales, Respiratory Distress - Cardiovascular Exam Cardiovascular Exam: REGULAR RHYTHM, +S1, +S2 - GI/Abdominal Exam GI & Abdominal Exam: Normal Bowel Sounds, Soft. absent: Tenderness - Extremities Exam Extremities exam: Negative for: calf tenderness, pedal edema, tenderness - Neurological Exam Neurological exam: Alert, Altered, Oriented x3 - Psychiatric Exam Psychiatric exam: Normal Affect, Normal Mood - Skin Skin Exam: Dry, Intact, Normal Color, Warm Results - Vital Signs Recent Vital Signs: Last Vital Signs Temp 98.7 F 04/03/18 12:57 Pulse 88 04/03/18 12:57 Resp 18 04/03/18 12:57 BP 154/71 H 04/03/18 13:33 Pulse Ox 90 L 04/03/18 14:05 - Labs Result Diagrams: 04/03/18 12:17 04/03/18 12:17 Labs: Laboratory Results - last 24 hr 04/03/18 04/03/18 04/03/18 12:17 12:17 12:17 WBC 3.9 L D RBC 4.25 L Hgb 14.1 Hct 42.0 MCV 98.8 H MCH 33.1 H MCHC 33.5 RDW 13.3 Plt Count 135 MPV 9.0 Neut % (Auto) 80.8 H Lymph % (Auto) 8.5 L [place] % (Auto) 10.2 H Eos % (Auto) 0.1 Baso % (Auto) 0.4 Neut # (Auto) 3.1 Lymph # (Auto) 0.3 L [place] # (Auto) 0.4 Eos # (Auto) 0.0 Baso # (Auto) 0.0 Neutrophils % (Manual) 81 H Lymphocytes % (Manual) 10 L Monocytes % (Manual) 9 Platelet Estimate Normal Sodium 139 Potassium 4.1 Chloride 102 Carbon Dioxide 25 Anion Gap 16 BUN 20 Creatinine 0.8 Est GFR ( Amer) > 60 Est GFR (Non-Af Amer) > 60 Random Glucose 122 H Calcium 8.9 Troponin I 0.0680 Influenza Typ A,B (EIA) Negative for flu a/b Assessment & Plan - Assessment and Plan (Free Text) Assessment: 67 y/o M with PMHx of COPD, chronic low back pain and HTN presents to ED with worsening dyspnea and COPD exacerbation. Plan: COPD exacerbation r/o pneumonia - Afebrile, O2 sat 91% on 2L - S/P duoneb x 3, Mg sulf 2gm, solumedrol 125 mg and Azithro 500 mg STAT in ED - CXR: No acute infiltrate - Start Duoneb QID - Solumedrol 60 mg Q8hr - Continue O2 2L NC - Pulmonary conult: Dr. Dickens, Recs appreciated - Monitor respiratory status - F/U CBC, bmp, proBNP HTN - Uncontrolled - Diet controlled, not on any home medication - Monitor Vitals Prophylaxis - DVT: Lovenox 40 mg SC - GI: Pantoprazole 40 mg po daily Diet: Heart healthy Code status: Full code <Jose Raul Machado D - Last Filed: 04/03/18 17:08> Results - Vital Signs Recent Vital Signs: Last Vital Signs Temp 98.7 F 04/03/18 14:57 Pulse 89 04/03/18 16:09 Resp 25 H 04/03/18 15:56 BP 161/88 H 04/03/18 14:57 Pulse Ox 96 04/03/18 15:56 - Labs Result Diagrams: 04/03/18 12:17 04/03/18 12:17 Labs: Laboratory Results - last 24 hr 04/03/18 04/03/18 04/03/18 12:17 12:17 12:17 WBC 3.9 L D RBC 4.25 L Hgb 14.1 Hct 42.0 MCV 98.8 H MCH 33.1 H MCHC 33.5 RDW 13.3 Plt Count 135 MPV 9.0 Neut % (Auto) 80.8 H Lymph % (Auto) 8.5 L [place] % (Auto) 10.2 H Eos % (Auto) 0.1 Baso % (Auto) 0.4 Neut # (Auto) 3.1 Lymph # (Auto) 0.3 L [place] # (Auto) 0.4 Eos # (Auto) 0.0 Baso # (Auto) 0.0 Neutrophils % (Manual) 81 H Lymphocytes % (Manual) 10 L Monocytes % (Manual) 9 Platelet Estimate Normal pCO2 pO2 HCO3 ABG pH ABG Total CO2 ABG O2 Saturation ABG O2 Content ABG Base Excess ABG Hemoglobin ABG Carboxyhemoglobin POC ABG HHb (Measured) ABG Methemoglobin ABG O2 Capacity [place] Test A-a O2 Difference Hgb O2 Saturation Vent Mode FiO2 Sodium 139 Potassium 4.1 Chloride 102 Carbon Dioxide 25 Anion Gap 16 BUN 20 Creatinine 0.8 Est GFR ( Amer) > 60 Est GFR (Non-Af Amer) > 60 Random Glucose 122 H Calcium 8.9 Troponin I 0.0680 NT-Pro-B Natriuret Pep Influenza Typ A,B (EIA) Negative for flu a/b 04/03/18 04/03/18 15:01 16:45 WBC RBC Hgb Hct MCV MCH MCHC RDW Plt Count MPV Neut % (Auto) Lymph % (Auto) [place] % (Auto) Eos % (Auto) Baso % (Auto) Neut # (Auto) Lymph # (Auto) [place] # (Auto) Eos # (Auto) Baso # (Auto) Neutrophils % (Manual) Lymphocytes % (Manual) Monocytes % (Manual) Platelet Estimate pCO2 34 L pO2 61 L HCO3 23.9 ABG pH 7.43 ABG Total CO2 23.6 ABG O2 Saturation 94.4 L ABG O2 Content 18.4 ABG Base Excess -1.1 ABG Hemoglobin 14.5 ABG Carboxyhemoglobin 2.8 H POC ABG HHb (Measured) 5.3 H ABG Methemoglobin 1.9 ABG O2 Capacity 19.5 [place] Test Yes A-a O2 Difference 96.0 Hgb O2 Saturation 90.1 L Vent Mode N/c FiO2 28.0 Sodium Potassium Chloride Carbon Dioxide Anion Gap BUN Creatinine Est GFR ( Amer) Est GFR (Non-Af Amer) Random Glucose Calcium Troponin I NT-Pro-B Natriuret Pep 763 Influenza Typ A,B (EIA) Attending/Attestation - Attestation I have personally seen and examined this patient.: Yes I have fully participated in the care of the patient.: Yes I have reviewed all pertinent clinical information: Yes Notes (Text): 04/03/18 17:07 Patient seen and examined with resident. Case discussed and agreed with assessment and plan of management.
[2018-04-03] MEDS: Albuterol-Ipratrop 3 mg / 0.5 (3 ml) UD INH SCH ×2 (16:08→19:05)
[2018-04-03] MEDS ORDERED: methylPREDNISolone 60 MG in Sodium Chloride 0.9% 50 ML IVPB SCH (17:00)
[2018-04-04 05:31] LABS: BLOOD UREA NITROGEN 23 mg/dl (9-20); CALCIUM 8.6 mg/dL (8.4-10.2); GFR NON-AFRICAN AMERICAN > 60
[2018-04-04 05:52] LABS: BASO % 0.3 % (0.0-2.0); HEMOGLOBIN 14.7 g/dL (12.0-18.0); LYMPH # 0.3 K/uL (1.0-4.3); LYMPH % 4.3 % (20.0-40.0); MEAN CELL VOLUME 100.4 fl (80.0-94.0); MEAN CORPUSCULAR HEMOGLOBIN 33.5 pg (27.0-31.0); MEAN CORPUSCULAR HGB CONC 33.3 g/dL (33.0-37.0); MEAN PLATELET VOLUME 9.1 fl (7.2-11.7); MONO # 0.2 K/uL (0.0-0.8); MONO % 2.9 % (0.0-10.0); NEUT # 7.3 K/uL (1.8-7.0); NEUT % 92.5 % (50.0-75.0); NRBC % 0.1 % (0.0-0.0); PLATELET COUNT 130 K/uL (130-400); RBC 4.38 Mil/uL (4.40-5.90); RED CELL DISTRIBUTION WIDTH 13.4 % (11.5-14.5); WHITE BLOOD COUNT 7.9 K/uL (4.8-10.8)
[2018-04-04] MEDS: Albuterol-Ipratrop 3 mg / 0.5 (3 ml) UD INH SCH ×4 (07:19→19:29)
[2018-04-04] MEDS ORDERED: Albuterol-Ipratrop 3 mg / 0.5 (3 ml) UD INH SCH (08:00)
[2018-04-04] MEDS: Enoxaparin 40 mg Syringe SC SCH (08:54)
[2018-04-04] MEDS ORDERED: Sodium Chloride 3% for Inhalation 4 ML VIAL.NEB IH PRN (09:26)
[2018-04-04] MEDS ORDERED: Albuterol 0.083% Inhal Sol (2.5 mg/3 mL) UD INH SCH (09:30)
--- NOTE | 2018-04-04 09:49 | CP.PCM.CON ---
History of Present Illness - History of Present Illness History of Present Illness: This 67-year-old male, current cigarette smoker who suffers from chronic obstructive pulmonary disease presented to the emergency department with worsening shortness of breath unresponsive to his routine medical treatment. He had been in his usual state of health at home until approximately 2-3 days prior when he began to have worsening dyspnea on exertion headache and throat discomfort. He was unaware of fever and denied chills. Temp comes were exacerbated by activity as well as lying supine in bed. He did develop chest pain which was associated with coughing nonproductively. There was no hemoptysis. He continued to use his nebulizer as well as his inhaler to no avail. Did have ill contact at home with his becoming ill approximately 1 week prior to his presentation. Past medical history: Chronic obstructive pulmonary disease, pneumonia x3, chronic low back pain with a diagnosis of sciatica and surgical lumbar decompression. Is no history of asthma or tuberculosis, coronary artery disease, diabetes, peptic ulcer disease, renal disease, liver disease, bleeding disorder or seizure disorder. He does have labile hypertension and declines medication preferring to attempt diet control. Social history: Current cigarette smoker greater than 50 years smoking approximately 1.5-2 packs/day. Alcohol intake is social, beer only. Denies illicit drug use. Family history: No known lung disease. Allergies: No known drug or seasonal allergies. Work history: Positive exposures to asbestos and dust. Review of Systems - Constitutional Constitutional: As Per HPI - EENT Nose/Mouth/Throat: Nasal Congestion, Dry Mouth - Respiratory Respiratory: Cough, Dyspnea, Wheezing, Pain with Coughing - Gastrointestinal Gastrointestinal: Vomiting (One episode of vomiting and diarrhea.) - Musculoskeletal Musculoskeletal: Limited Range of Motion (Left upper extremity) Past Patient History - Infectious Disease Hx of Infectious Diseases: None - Tetanus Immunizations Tetanus Immunization: Unknown - Past Medical History & Family History Past Medical History?: Yes - Past Social History Smoking Status: Heavy Smoker > 10 Cigarettes Daily Chewing Tobacco Use: No Cigar Use: No Alcohol: Social Drugs: Denies Home Situation {Lives}: With Family - CARDIAC Hx Cardiac Disorders: Yes Hx Hypertension: Yes (Labile) - PULMONARY Hx Respiratory Disorders: Yes Hx Chronic Obstructive Pulmonary Disease (COPD): Yes Hx Pneumonia: Yes - NEUROLOGICAL Hx Neurological Disorder: No - HEENT Hx HEENT Problems: No - RENAL Hx Chronic Kidney Disease: No - ENDOCRINE/METABOLIC Hx Endocrine Disorders: No - HEMATOLOGICAL/ONCOLOGICAL Hx Blood Disorders: No Hx Human Immunodeficiency Virus (HIV): No - INTEGUMENTARY Hx Dermatological Problems: No - MUSCULOSKELETAL/RHEUMATOLOGICAL Hx Falls: No Hx Herniated Disk: Yes Other/Comment: back surgery - GASTROINTESTINAL Hx Gastrointestinal Disorders: No - GENITOURINARY/GYNECOLOGICAL Hx Genitourinary Disorders: No - PSYCHIATRIC Hx Psychophysiologic Disorder: No Hx Substance Use: No - SURGICAL HISTORY Hx Musculoskeletal Surgery: Yes (L4-L5 laminotomy with decompression) - ANESTHESIA Hx Anesthesia: Yes Hx Anesthesia Reactions: No Hx Malignant Hyperthermia: No Has any member of the family had a problem w/ anesthesia?: No Meds Allergies/Adverse Reactions: Allergies Allergy/AdvReac Type Severity Reaction Status Date / Time No Known Allergies Allergy Verified 04/03/18 11:18 - Medications Medications: Current Medications Albuterol Sulfate (Albuterol 0.083% Inhal Sabi (2.5 Mg/3 Ml) Ud) 2.5 mg INH Q2 OTF Albuterol/Ipratropium (Duoneb 3 Mg/0.5 Mg (3 Ml) Ud) 3 ml INH RQ4 OFT Docusate Sodium (Colace) 100 mg PO BID PRN PRN Reason: Constipation Enoxaparin Sodium (Lovenox) 40 mg SC DAILY [facility]; Protocol Last Admin: 04/04/18 08:54 Dose: 40 mg Losartan Potassium (Cozaar) 25 mg PO DAILY [facility] Methylprednisolone (Solu-Medrol) 60 mg IV Q8 OTF Last Admin: 04/04/18 09:02 Dose: 60 mg Nicotine (Nicoderm Cq) 1 patch TD DAILY [facility] Physical Exam - Additional Findings Additional findings: Thin male lying in bed with nasal oxygen at 3 L/min, SPO2 92% Pharynx is injected in the posterior wall and mucous membranes are moist, no exudate. Conjunctivae are pink and there is no scleral icterus. Nares are patent bilaterally without bleeding or exudate. No palpable lymphadenopathy Neck is supple and trachea is midline. No neck vein distention or carotid bruit. No dullness on chest percussion, equal expansion, both hemidiaphragms appear to be displaced caudally. Breath sounds are markedly diminished bilaterally. There is a faint pleural rub in the left upper lobe. Expiratory phase appears to be slightly prolonged with faint low pitched expiratory wheeze. Few scattered sonorous rhonchi in dependent regions of both lungs. Few lower lobe dry rales bilaterally. Heart sounds are distant and the rhythm is regular. No murmur is appreciated. Abdomen is soft, nontender with normal bowel sounds and no CVA tenderness. No palpable HSM. No dependent edema of the lower extremities. No cyanosis. No calf tenderness or palpable venous cords. Results - Vital Signs Recent Vital Signs: Last Vital Signs Temp 98.0 F 04/04/18 08:00 Pulse 99 H 04/04/18 08:00 Resp 37 H 04/04/18 08:00 BP 152/67 H 04/04/18 08:00 Pulse Ox 93 L 04/04/18 08:00 - Labs Result Diagrams: 04/04/18 04:37 04/04/18 04:37 Labs: Laboratory Results - last 24 hr 04/03/18 04/03/18 04/03/18 12:17 12:17 12:17 WBC 3.9 L D RBC 4.25 L Hgb 14.1 Hct 42.0 MCV 98.8 H MCH 33.1 H MCHC 33.5 RDW 13.3 Plt Count 135 MPV 9.0 Neut % (Auto) 80.8 H Lymph % (Auto) 8.5 L [place] % (Auto) 10.2 H Eos % (Auto) 0.1 Baso % (Auto) 0.4 Neut # (Auto) 3.1 Lymph # (Auto) 0.3 L [place] # (Auto) 0.4 Eos # (Auto) 0.0 Baso # (Auto) 0.0 Neutrophils % (Manual) 81 H Lymphocytes % (Manual) 10 L Monocytes % (Manual) 9 Platelet Estimate Normal pCO2 pO2 HCO3 ABG pH ABG Total CO2 ABG O2 Saturation ABG O2 Content ABG Base Excess ABG Hemoglobin ABG Carboxyhemoglobin POC ABG HHb (Measured) ABG Methemoglobin ABG O2 Capacity [place] Test A-a O2 Difference Hgb O2 Saturation Vent Mode FiO2 Sodium 139 Potassium 4.1 Chloride 102 Carbon Dioxide 25 Anion Gap 16 BUN 20 Creatinine 0.8 Est GFR ( Amer) > 60 Est GFR (Non-Af Amer) > 60 Random Glucose 122 H Calcium 8.9 Troponin I 0.0680 NT-Pro-B Natriuret Pep Influenza Typ A,B (EIA) Negative for flu a/b 04/03/18 04/03/1804/04/18 15:01 16:45 04:37 WBC 7.9 D RBC 4.38 L Hgb 14.7 Hct 44.0 MCV 100.4 H MCH 33.5 H MCHC 33.3 RDW 13.4 Plt Count 130 MPV 9.1 Neut % (Auto) 92.5 H Lymph % (Auto) 4.3 L [place] % (Auto) 2.9 Eos % (Auto) 0.0 Baso % (Auto) 0.3 Neut # (Auto) 7.3 H Lymph # (Auto) 0.3 L [place] # (Auto) 0.2 Eos # (Auto) 0.0 Baso # (Auto) 0.0 Neutrophils % (Manual) Lymphocytes % (Manual) Monocytes % (Manual) Platelet Estimate pCO2 34 L pO2 61 L HCO3 23.9 ABG pH 7.43 ABG Total CO2 23.6 ABG O2 Saturation 94.4 L ABG O2 Content 18.4 ABG Base Excess -1.1 ABG Hemoglobin 14.5 ABG Carboxyhemoglobin 2.8 H POC ABG HHb (Measured) 5.3 H ABG Methemoglobin 1.9 ABG O2 Capacity 19.5 [place] Test Yes A-a O2 Difference 96.0 Hgb O2 Saturation 90.1 L Vent Mode N/c FiO2 28.0 Sodium Potassium Chloride Carbon Dioxide Anion Gap BUN Creatinine Est GFR ( Amer) Est GFR (Non-Af Amer) Random Glucose Calcium Troponin I NT-Pro-B Natriuret Pep 763 Influenza Typ A,B (EIA) 04/04/18 04:37 WBC RBC Hgb Hct MCV MCH MCHC RDW Plt Count MPV Neut % (Auto) Lymph % (Auto) [place] % (Auto) Eos % (Auto) Baso % (Auto) Neut # (Auto) Lymph # (Auto) [place] # (Auto) Eos # (Auto) Baso # (Auto) Neutrophils % (Manual) Lymphocytes % (Manual) Monocytes % (Manual) Platelet Estimate pCO2 pO2 HCO3 ABG pH ABG Total CO2 ABG O2 Saturation ABG O2 Content ABG Base Excess ABG Hemoglobin ABG Carboxyhemoglobin POC ABG HHb (Measured) ABG Methemoglobin ABG O2 Capacity [place] Test A-a O2 Difference Hgb O2 Saturation Vent Mode FiO2 Sodium 138 Potassium 4.2 Chloride 106 Carbon Dioxide 22 Anion Gap 14 BUN 23 H Creatinine 0.6 L Est GFR ( Amer) > 60 Est GFR (Non-Af Amer) > 60 Random Glucose 167 H Calcium 8.6 Troponin I NT-Pro-B Natriuret Pep Influenza Typ A,B (EIA) Assessment & Plan (1) Acute exacerbation of chronic obstructive pulmonary disease (COPD) Status: Acute Priority: High (2) Left shoulder pain Status: Acute Priority: High (3) Limitation of joint motion of left shoulder Status: Acute Priority: High (4) Hypertension Status: Chronic Priority: High - Assessment and Plan (Free Text) Plan: Schedule of inhalation therapies has been adjusted to avoid excessive beta adrenergic stimulation. Solu-Medrol has been reduced to 40 mg every 8 hours. Maintain nasal oxygen at 3 L/min. CT scan of the thorax without contrast has been requested because of left shoulder pain. Influenza and pneumococcal vaccinations as indicated. - Date & Time Date: 04/04/18 Time: 10:06
[2018-04-04] MEDS ORDERED: Albuterol 0.083% Inhal Sol (2.5 mg/3 mL) UD INH PRN (10:08)
[2018-04-04 10:28] LABS: BANDS 4 % (0-2); LYMPHOCYTE 2 % (20-50); MONOCYTE 3 % (0-10); NEUTROPHIL 91 % (42-75); TOTAL CELLS COUNTED 100
[2018-04-04 10:29] LABS: PLATELET ESTIMATE NORMAL (NORMAL)
[2018-04-04 10:30] LABS: LARGE PLATELETS PRESENT; PLATELET CLUMPS PRESENT
--- NOTE | 2018-04-04 11:58 | CP.PCM.PN ---
<Da Kiran - Last Filed: 04/04/18 12:12> Subjective - Date & Time of Evaluation Date of Evaluation: 04/04/18 Time of Evaluation: 09:30 - Subjective Subjective: Patient seen and evaluated at bedside during morning rounds. Patient BP 200s/80s overnight which improved with 10mg IV Hydralazine to 150s/70s. Afebrile, alert, awake currently on NC 3L. Patient reports improvement in dyspnea compare to however still dyspneic with minimal exercsion/walking. Cough is more productive and patient able to expectorate it. Denies any CP, headache, N/V/D, pedal edema, calf tenderness. Tolerating diet well PO. Objective - Vital Signs/Intake and Output Vital Signs (last 24 hours): Temp Pulse Resp BP Pulse Ox 98.0 F 91 H 31 H 131/66 93 L 04/04/18 08:00 04/04/18 11:36 04/04/18 09:00 04/04/18 11:36 04/04/18 09:00 - Medications Medications: Current Medications Albuterol Sulfate (Albuterol 0.083% Inhal Sabi (2.5 Mg/3 Ml) Ud) 2.5 mg INH RQ4 PRN PRN Reason: Shortness of Breath Albuterol/Ipratropium (Duoneb 3 Mg/0.5 Mg (3 Ml) Ud) 3 ml INH RQID [facility] Last Admin: 04/04/18 11:05 Dose: 3 ml Azithromycin (Zithromax) 250 mg PO DAILY [facility]; Protocol Stop: 04/08/18 11:01 Docusate Sodium (Colace) 100 mg PO BID PRN PRN Reason: Constipation Enoxaparin Sodium (Lovenox) 40 mg SC DAILY [facility]; Protocol Last Admin: 04/04/18 08:54 Dose: 40 mg Losartan Potassium (Cozaar) 25 mg PO DAILY [facility] Last Admin: 04/04/18 11:36 Dose: 25 mg Methylprednisolone (Solu-Medrol) 40 mg IVP Q8 [facility] Nicotine (Nicoderm Cq) 1 patch TD DAILY [facility] Last Admin: 04/04/18 11:37 Dose: 1 patch - Labs Labs: 04/04/18 04:37 04/04/18 04:37 - Constitutional Appears: Non-toxic, No Acute Distress - Head Exam Head Exam: ATRAUMATIC, NORMOCEPHALIC - Eye Exam Eye Exam: EOMI, Normal appearance Pupil Exam: PERRL - ENT Exam ENT Exam: Mucous Membranes Moist - Respiratory Exam Respiratory Exam: Decreased Breath Sounds, Rhonchi - Cardiovascular Exam Cardiovascular Exam: REGULAR RHYTHM, +S1, +S2 - GI/Abdominal Exam GI & Abdominal Exam: Soft, Normal Bowel Sounds. absent: Distended, Tenderness - Extremities Exam Extremities Exam: absent: Calf Tenderness, Pedal Edema, Tenderness - Neurological Exam Neurological Exam: Alert, Awake, Oriented x3 - Psychiatric Exam Psychiatric exam: Normal Affect, Normal Mood - Skin Skin Exam: Dry, Intact, Normal Color, Warm Assessment and Plan - Assessment and Plan (Free Text) Assessment: 67 y/o M with PMHx of COPD, chronic low back pain and HTN presents to ED with w orsening dyspnea and COPD exacerbation. Plan: Plan: COPD exacerbation - Afebrile, Tachypneic, O2 sat 94% on 3L - S/P duoneb x 3, Mg sulf 2gm, solumedrol 125 mg and Azithro 500 mg in ED - CXR: No acute infiltrate - C/W Duoneb QID, albuterol Q4hr PRN. - Solumedrol decreased to 40 mg Q8hr - Start Azithromycin 250 daily - Pulmonary conult: Dr. Dickens, Arturo appreciated - CT scan of the thorax without contrast - F/U Sputum Cx, CBC and respiratory status HTN - Uncontrolled - Start Losartan 25 mg PO daily - Monitor Vitals Nicotine dependance - 48 y/o H/O 1.5 PPD - Will start Nicotine patch 21 mg TD Prophylaxis - DVT: Lovenox 40 mg SC Diet: Heart healthy Code status: Full code <Mariana Savage - Last Filed: 04/04/18 13:45> Objective - Vital Signs/Intake and Output Vital Signs (last 24 hours): Temp Pulse Resp BP Pulse Ox 98.0 F 91 H 35 H 131/66 93 L 04/04/18 12:00 04/04/18 12:00 04/04/18 12:00 04/04/18 11:36 04/04/18 12:00 - Medications Medications: Current Medications Albuterol Sulfate (Albuterol 0.083% Inhal Sabi (2.5 Mg/3 Ml) Ud) 2.5 mg INH RQ4 PRN PRN Reason: Shortness of Breath Albuterol/Ipratropium (Duoneb 3 Mg/0.5 Mg (3 Ml) Ud) 3 ml INH RQID [facility] Last Admin: 04/04/18 11:05 Dose: 3 ml Azithromycin (Zithromax) 250 mg PO DAILY [facility]; Protocol Stop: 04/08/18 11:01 Last Admin: 04/04/18 12:57 Dose: 250 mg Docusate Sodium (Colace) 100 mg PO BID PRN PRN Reason: Constipation Enoxaparin Sodium (Lovenox) 40 mg SC DAILY [facility]; Protocol Last Admin: 04/04/18 08:54 Dose: 40 mg Losartan Potassium (Cozaar) 25 mg PO DAILY [facility] Last Admin: 04/04/18 11:36 Dose: 25 mg Methylprednisolone (Solu-Medrol) 40 mg IVP Q8 [facility] Nicotine (Nicoderm Cq) 1 patch TD DAILY [facility] Last Admin: 04/04/18 11:37 Dose: 1 patch - Labs Labs: 04/04/18 04:37 04/04/18 04:37 Attending/Attestation - Attestation I have personally seen and examined this patient.: Yes I have fully participated in the care of the patient.: Yes I have reviewed all pertinent clinical information, including history, physical exam and plan: Yes Notes (Text): 04/04/18 13:44 Seen, examined, and discussed with resident. Agree with findings and plan as above. ECHO, cont bronchodilators, cont steroids, cont azith. Dr Dickens consult appreciated. patient slow improvement.
--- NOTE | 2018-04-04 16:13 | CT ---
Date of service: 04/04/2018 PROCEDURE: CT Chest without contrast HISTORY: cough COMPARISON: Chest radiograph from 04/03/2018. TECHNIQUE: Contiguous axial images were obtained through the chest without intravenous contrast enhancement. Sagittal and coronal reconstructions were performed. Radiation dose: Total exam DLP = 398.4 mGy-cm. This CT exam was performed using one or more of the following dose reduction techniques: Automated exposure control, adjustment of the mA and/or kV according to patient size, and/or use of iterative reconstruction technique. FINDINGS: LUNGS: The 6 the the lungs are well inflated. There are tree in bud opacities in the right lower lobe. There are mild fibrotic changes with honeycombing and interlobular thickening in the posterior aspect of the upper lobes, she anterior basal and posterior basal segments of the right lower lobe. There are no endobronchial lesions. There is mild biapical paraseptal emphysema. MEDIASTINUM: No aneurysm. Normal sized heart. There is focal pericardial thickening anteriorly. No effusion. Main pulmonary artery unremarkable. No vascular congestion. Subcentimeter mediastinal lymph nodes are likely reactive. There are aortic atherosclerotic calcifications present. PLEURA: No pleural fluid. No pneumothorax. BONES: No fracture. No destructive lesion. The There is diffuse bone demineralization and multilevel degenerative changes in the spine. UPPER ABDOMEN: Grossly unremarkable. OTHER FINDINGS: None. IMPRESSION: 1. Tree-in-bud opacities in the right lower lobe which may represent nonspecific infectious bronchiolitis. 2. Mild fibrotic changes in the posterior aspects of the upper lobes and in the right lower lobe. The the
[2018-04-04] MEDS: MethylPREDNISolone 40 mg Vial IVP SCH (16:28)
[2018-04-04] MEDS ORDERED: methylPREDNISolone 40 MG in Sodium Chloride 0.9% 50 ML IV SCH (17:00)
--- NOTE | 2018-04-05 00:37 | CARD ---
APPROVED REPORT Date of service: 04/04/2018 EXAM: Two-dimensional and M-mode echocardiogram with Doppler and color Doppler. Other Information Quality : GoodRhythm : NSR INDICATION Dyspnea Hypertension/HCVD COPD 2D DIMENSIONS IVSd1.70 (0.7-1.1cm)LVDd4.25 (3.9-5.9cm) LVOT Diameter1.68 (1.8-2.4cm)PWd1.21 (0.7-1.1cm) IVSs1.38 (0.8-1.2cm)LVDs3.17 (2.5-4.0cm) FS (%) 25.4 %PWs1.50 (0.8-1.2cm) M-Mode DIMENSIONS Left Atrium (MM)3.16 (2.5-4.0cm)IVSd1.56 (0.7-1.1cm) Aortic Root2.83 (2.2-3.7cm)LVDd4.31 (4.0-5.6cm) Aortic Cusp Exc.1.43 (1.5-2.0cm)PWd1.38 (0.7-1.1cm) IVSs2.00 cmFS (%) 41 % LVDs2.53 (2.0-3.8cm)PWs1.81 cm Aortic Valve AoV Peak Jjuncpcf828.1cm/sAoV VTI28.5cmAO Peak GR.12mmHg LVOT Peak Nkhfbowf12.0cm/sLVOT VTI18.16cmAO Mean GR.7mmHg [place] (VMAX)0.06hn7PKJ (VTI)0.79cm2 Mitral Valve MV E Vrhbxklh04.7cm/sMV DECEL [id number] A Xqmxhapn57.0cm/s MV MDP06gjC/A ratio0.7MVA (PHT)3.05cm2 TDI Lateral E' Peak V9.29cm/sMedial E' Peak V7.66cm/sE/Lateral E'6.0 E/Medial E'7.3 LEFT VENTRICLE The left ventricle is normal size. There is mild concentric left ventricular hypertrophy. The left ventricular systolic function is normal. The estimated ejection fraction is 60-65% No regional wall motion abnormalities noted.. Transmitral Doppler flow pattern is Grade I-abnormal relaxation pattern. No left ventricle thrombus noted on this study. There is no ventricular septal defect visualized. There is no left ventricular aneurysm. There is no mass noted in the left ventricle. RIGHT VENTRICLE The right ventricle is normal size. There is normal right ventricular wall thickness. The right ventricular systolic function is normal. ATRIA The left atrium size is normal. The right atrium size is normal. The interatrial septum is intact with no evidence for an atrial septal defect. AORTIC VALVE The aortic valve is normal in structure. No aortic regurgitation is present. There is no aortic valvular stenosis. There is no aortic valvular vegetation. MITRAL VALVE The mitral valve is normal in structure. There is no evidence of mitral valve prolapse. There is no mitral valve stenosis. There is no mitral valve regurgitation noted. TRICUSPID VALVE The tricuspid valve is normal in structure. There is no tricuspid valve regurgitation noted. There is no tricuspid valve prolapse or vegetation. There is no tricuspid valve stenosis. PULMONIC VALVE The pulmonary valve is normal in structure. There is no pulmonic valvular regurgitation. There is no pulmonic valvular stenosis. GREAT VESSELS The aortic root is normal in size. The ascending aorta is normal in size. The pulmonary artery is normal. The IVC is normal in size and collapses >50% with inspiration. PERICARDIAL EFFUSION There is no pericardial effusion. There is no pleural effusion. <Conclusion> There is mild concentric left ventricular hypertrophy. The estimated ejection fraction is 60-65% Transmitral Doppler flow pattern is Grade I-abnormal relaxation pattern. The left atrium size is normal. There is no significant tricuspid valve regurgitation noted.
--- NOTE | 2018-04-05 00:55 | CARD ---
APPROVED REPORT Date of service: 04/03/2018 EKG Measurement Heart [id number] <Conclusion> Sinus rhythm with marked sinus arrhythmia Otherwise normal ECG
[2018-04-05] MEDS: MethylPREDNISolone 40 mg Vial IVP SCH ×3 (01:08→21:12)
[2018-04-05 05:38] LABS: BASO % 0.2 % (0.0-2.0); HEMOGLOBIN 14.3 g/dL (12.0-18.0); LYMPH # 0.4 K/uL (1.0-4.3); LYMPH % 4.3 % (20.0-40.0); MEAN CELL VOLUME 98.8 fl (80.0-94.0); MEAN CORPUSCULAR HEMOGLOBIN 33.4 pg (27.0-31.0); MEAN CORPUSCULAR HGB CONC 33.8 g/dL (33.0-37.0); MEAN PLATELET VOLUME 9.2 fl (7.2-11.7); MONO # 0.4 K/uL (0.0-0.8); MONO % 3.6 % (0.0-10.0); NEUT # 9.2 K/uL (1.8-7.0); NEUT % 91.9 % (50.0-75.0); NRBC % 0.1 % (0.0-0.0); PLATELET COUNT 147 K/uL (130-400); RBC 4.28 Mil/uL (4.40-5.90); RED CELL DISTRIBUTION WIDTH 13.1 % (11.5-14.5); WHITE BLOOD COUNT 10.1 K/uL (4.8-10.8)
[2018-04-05 06:27] LABS: BLOOD UREA NITROGEN 38 mg/dl (9-20); CALCIUM 8.6 mg/dL (8.4-10.2); GFR NON-AFRICAN AMERICAN > 60
[2018-04-05] MEDS: Albuterol-Ipratrop 3 mg / 0.5 (3 ml) UD INH SCH ×4 (07:38→20:02)
[2018-04-05] MEDS: Enoxaparin 40 mg Syringe SC SCH (08:01)
[2018-04-05 08:36] LABS: BANDS 1 % (0-2); LYMPHOCYTE 8 % (20-50); MONOCYTE 6 % (0-10); NEUTROPHIL 85 % (42-75); PLATELET ESTIMATE NORMAL (NORMAL); TOTAL CELLS COUNTED 100
[2018-04-05] MEDS ORDERED: MethylPREDNISolone 40 mg Vial IVP SCH (09:00)
[2018-04-05] MEDS ORDERED: methylPREDNISolone 40 MG in Sodium Chloride 0.9% 50 ML IV SCH (09:00)
--- NOTE | 2018-04-05 09:19 | CP.PCM.PN ---
Subjective - Date & Time of Evaluation Date of Evaluation: 04/05/18 Time of Evaluation: 09:14 - Subjective Subjective: Awake, alert and cooperative. Anxious for discharge to home. Had one episode of diarrhea overnight. Vital signs have been stable, he remains afebrile. Sputum in container at the bedside appears mucoid. Cigarette craving ++. CT chest reviewed, emphysema, scattered areas of ILD and tree in bud pattern RLL. No cyanosis, no dependant edema. Neck is supple and trachea midline. No dullness to chest percussion, no subcut emphysema. Breath sounds are diminished equally in both lungs. No audible wheezes or bronchial breath sounds. Few dry rales scattered in lower lobes. Heart sounds are distant, regular rhythm. May transfer out of unit to regular medical floor. Solumedrol reduced to 40MG this AM then 30MG Q12H. Azithromycin to continue at 250MG POOD. Continue nicotine replacement therapy. Potentially may be dc'd in 24-48hrs. Objective - Vital Signs/Intake and Output Vital Signs (last 24 hours): Temp Pulse Resp BP Pulse Ox 98.2 F 76 22 127/67 94 L 04/05/18 08:58 04/05/18 08:58 04/05/18 08:58 04/05/18 08:58 04/05/18 08:58 - Medications Medications: Current Medications Albuterol Sulfate (Albuterol 0.083% Inhal Sabi (2.5 Mg/3 Ml) Ud) 2.5 mg INH RQ4 PRN PRN Reason: Shortness of Breath Albuterol/Ipratropium (Duoneb 3 Mg/0.5 Mg (3 Ml) Ud) 3 ml INH RQID [facility] Last Admin: 04/05/18 07:38 Dose: 3 ml Azithromycin (Zithromax) 250 mg PO DAILY [facility]; Protocol Stop: 04/08/18 11:01 Last Admin: 04/05/18 08:00 Dose: 250 mg Docusate Sodium (Colace) 100 mg PO BID PRN PRN Reason: Constipation Enoxaparin Sodium (Lovenox) 40 mg SC DAILY [facility]; Protocol Last Admin: 04/05/18 08:01 Dose: 40 mg Famotidine (Pepcid) 20 mg PO BID [facility] Last Admin: 04/05/18 09:11 Dose: 20 mg Losartan Potassium (Cozaar) 25 mg PO DAILY [facility] Last Admin: 04/05/18 08:00 Dose: 25 mg Methylprednisolone (Solu-Medrol) 40 mg IVP Q12 [facility] Last Admin: 04/05/18 09:03 Dose: Not Given Nicotine (Nicoderm Cq) 1 patch TD DAILY [facility] Last Admin: 04/05/18 08:01 Dose: 1 patch - Labs Labs: 04/05/18 04:16 04/05/18 04:16 Assessment and Plan (1) Acute exacerbation of chronic obstructive pulmonary disease (COPD) Status: Acute (2) Left shoulder pain Status: Acute (3) Limitation of joint motion of left shoulder Status: Acute (4) Hypertension Status: Chronic
--- NOTE | 2018-04-05 09:52 | CP.PCM.PN ---
<Da Kiran - Last Filed: 04/05/18 13:33> Subjective - Date & Time of Evaluation Date of Evaluation: 04/05/18 Time of Evaluation: 08:40 - Subjective Subjective: Patient seen and evaluated at bedside in AM. No acute events overnight except for 1 episode of loose stools. Afebrile, alert, awake and currently saturating 94% on NC 3L. Patient reports significant improvement in dyspnea and cough. Denies any fever, chills, chest pain, nausea, vomiting. Tolerating diet well PO. Objective - Vital Signs/Intake and Output Vital Signs (last 24 hours): Temp Pulse Resp BP Pulse Ox 98.2 F 76 22 127/67 94 L 04/05/18 08:58 04/05/18 08:58 04/05/18 08:58 04/05/18 08:58 04/05/18 08:58 - Medications Medications: Current Medications Albuterol Sulfate (Albuterol 0.083% Inhal Sabi (2.5 Mg/3 Ml) Ud) 2.5 mg INH RQ4 PRN PRN Reason: Shortness of Breath Albuterol/Ipratropium (Duoneb 3 Mg/0.5 Mg (3 Ml) Ud) 3 ml INH RQID [facility] Last Admin: 04/05/18 07:38 Dose: 3 ml Azithromycin (Zithromax) 250 mg PO DAILY [facility]; Protocol Stop: 04/08/18 11:01 Last Admin: 04/05/18 08:00 Dose: 250 mg Docusate Sodium (Colace) 100 mg PO BID PRN PRN Reason: Constipation Enoxaparin Sodium (Lovenox) 40 mg SC DAILY [facility]; Protocol Last Admin: 04/05/18 08:01 Dose: 40 mg Famotidine (Pepcid) 20 mg PO BID [facility] Last Admin: 04/05/18 09:11 Dose: 20 mg Losartan Potassium (Cozaar) 25 mg PO DAILY [facility] Last Admin: 04/05/18 08:00 Dose: 25 mg Methylprednisolone (Solu-Medrol) 40 mg IVP Q12 [facility] Stop: 04/05/18 12:00 Last Admin: 04/05/18 09:03 Dose: Not Given Methylprednisolone (Solu-Medrol) 30 mg IVP Q12 [facility] Nicotine (Nicoderm Cq) 1 patch TD DAILY [facility] Last Admin: 04/05/18 08:01 Dose: 1 patch - Labs Labs: 04/05/18 04:16 04/05/18 04:16 Assessment and Plan - Assessment and Plan (Free Text) Assessment: 67 y/o M with PMHx of COPD, chronic low back pain and HTN presents to ED with worsening dyspnea and COPD exacerbation. Patient unlikely to have acute pneumonia based on CXR and CT scan. Plan: Acute COPD exacerbation - Improving, Afebrile, O2 sat 94% on 3L - CXR: No acute infiltrate - CT Chest: Tree-in-bud opacities in the right lower lobe which may represent nonspecific infectious bronchiolitis. Mild fibrotic changes in the posterior aspects of the upper lobes and in the right lower lobe. - C/W Duoneb QID, albuterol Q4hr PRN. - Solumedrol decreased to 40 mg Q12 this morning and then 30 mg Q12 from evening dose. - C/W Azithromycin 250 PO daily - Pulmonary consult: Dr. Dickens, Recs appreciated - F/U Legionella Ag, Stre Pneumonie Ag, MRSA, Adenovirus and mycoplasma. Sputum for Cx uncollected. - Possible D/C in 24-48 hrs. HTN - Uncontrolled - C/W Losartan 25 mg PO daily - Monitor Vitals Nicotine dependance - 48 y/o H/O 1.5 PPD - C/W Nicotine patch 21 mg TD Prophylaxis - DVT: Lovenox 40 mg SC Diet: Heart healthy Code status: Full code <Mariana Savage - Last Filed: 04/07/18 00:33> Objective - Vital Signs/Intake and Output Vital Signs (last 24 hours): Temp Pulse Resp BP Pulse Ox 97.7 F 76 18 116/52 L 94 L 04/06/18 08:33 04/06/18 08:33 04/06/18 08:33 04/06/18 08:33 04/06/18 08:33 - Labs Labs: 04/06/18 06:00 04/06/18 06:00 Attending/Attestation - Attestation I have personally seen and examined this patient.: Yes I have fully participated in the care of the patient.: Yes I have reviewed all pertinent clinical information, including history, physical exam and plan: Yes Notes (Text): 04/07/18 00:33 agree with findings and plan as above
[2018-04-05] MEDS ORDERED: methylPREDNISolone 30 MG in Sodium Chloride 0.9% 50 ML IV SCH (21:00)
[2018-04-06 06:28] LABS: BASO % 0.1 % (0.0-2.0); HEMOGLOBIN 14.1 g/dL (12.0-18.0); LYMPH # 0.5 K/uL (1.0-4.3); LYMPH % 5.1 % (20.0-40.0); MEAN CELL VOLUME 102.3 fl (80.0-94.0); MEAN CORPUSCULAR HEMOGLOBIN 33.4 pg (27.0-31.0); MEAN CORPUSCULAR HGB CONC 32.7 g/dL (33.0-37.0); MEAN PLATELET VOLUME 9.4 fl (7.2-11.7); MONO # 0.4 K/uL (0.0-0.8); MONO % 4.5 % (0.0-10.0); NEUT # 8.6 K/uL (1.8-7.0); NEUT % 90.3 % (50.0-75.0); NRBC % 0.1 % (0.0-0.0); PLATELET COUNT 156 K/uL (130-400); RBC 4.23 Mil/uL (4.40-5.90); RED CELL DISTRIBUTION WIDTH 13.3 % (11.5-14.5); WHITE BLOOD COUNT 9.6 K/uL (4.8-10.8)
[2018-04-06 06:54] LABS: BLOOD UREA NITROGEN 45 mg/dl (9-20); CALCIUM 8.7 mg/dL (8.4-10.2); GFR NON-AFRICAN AMERICAN > 60
[2018-04-06] MEDS: Albuterol-Ipratrop 3 mg / 0.5 (3 ml) UD INH SCH ×2 (07:12→11:31)
[2018-04-06] MEDS ORDERED: Calcium Gluconate 4.65 mEq/10 ml Inj IV ONE (07:45)
[2018-04-06] MEDS ORDERED: Albuterol 0.083% Inhal Sol (2.5 mg/3 mL) UD INH STA (07:45)
[2018-04-06] MEDS ORDERED: Dextrose 50% SYRINGE Inj (50 ml) IVP ONE (07:45)
[2018-04-06] MEDS ORDERED: Calcium Gluconate 4.6 MEQ in Sodium Chloride 0.9% 100 ML IV ONE (08:00)
[2018-04-06 08:34] VITALS: BP 116/52; PULSE 76; RESP 18; TEMP 97.7
[2018-04-06 09:39] LABS: BANDS 3 % (0-2); LYMPHOCYTE 6 % (20-50); MONOCYTE 4 % (0-10); NEUTROPHIL 87 % (42-75); PLATELET ESTIMATE NORMAL (NORMAL); TOTAL CELLS COUNTED 100
[2018-04-06 09:41] LABS: LARGE PLATELETS PRESENT
[2018-04-06] MEDS: MethylPREDNISolone 40 mg Vial IVP SCH (10:14)
[2018-04-06] MEDS: Enoxaparin 40 mg Syringe SC SCH (10:15)
--- NOTE | 2018-04-06 13:15 | CP.PCM.PN ---
Subjective - Date & Time of Evaluation Date of Evaluation: 04/06/18 Time of Evaluation: 13:08 - Subjective Subjective: Patient is seen on the genral medical floor. He had a fair night of sleep. He has ambulated to the bathroom this morning with mild BLOOM. His SpO2 is 88% on room air at rest. He has remained afebrile. Today's labs were reviewed. No dependant edema, no cyanosis. Neck is supple and trachea midline. Breath sounds are markedly diminished in both lungs. No audible wheezing or bronchial breath sounds. Few dry rales are present in the lower lobes of both lungs. Requested follow up as outpatient next week. Resume Anoro Ellipta, 1 inhalation daily. Has rx for azithromycin and medrol dosepak. Objective - Vital Signs/Intake and Output Vital Signs (last 24 hours): Temp Pulse Resp BP Pulse Ox 97.7 F 76 18 116/52 L 94 L 04/06/18 08:33 04/06/18 08:33 04/06/18 08:33 04/06/18 08:33 04/06/18 08:33 - Medications Medications: Current Medications Albuterol Sulfate (Albuterol 0.083% Inhal Sabi (2.5 Mg/3 Ml) Ud) 2.5 mg INH RQ4 PRN PRN Reason: Shortness of Breath Albuterol/Ipratropium (Duoneb 3 Mg/0.5 Mg (3 Ml) Ud) 3 ml INH RQID [facility] Last Admin: 04/06/18 11:31 Dose: 3 ml Azithromycin (Zithromax) 250 mg PO DAILY [facility]; Protocol Stop: 04/08/18 11:01 Last Admin: 04/06/18 10:14 Dose: 250 mg Docusate Sodium (Colace) 100 mg PO BID PRN PRN Reason: Constipation Enoxaparin Sodium (Lovenox) 40 mg SC DAILY [facility]; Protocol Last Admin: 04/06/18 10:15 Dose: 40 mg Famotidine (Pepcid) 20 mg PO BID [facility] Last Admin: 04/06/18 10:14 Dose: 20 mg Hydrochlorothiazide (Microzide) 12.5 mg PO DAILY [facility] Insulin Human Regular (Humulin R) 10 units IV ONCE ONE Stop: 04/07/18 07:46 Last Admin: 04/06/18 10:25 Dose: 10 u Methylprednisolone (Solu-Medrol) 30 mg IVP Q12 [facility] Last Admin: 04/06/18 10:14 Dose: 30 mg Nicotine (Nicoderm Cq) 1 patch TD DAILY [facility] Last Admin: 04/06/18 10:15 Dose: 1 patch - Labs Labs: 04/06/18 06:00 04/06/18 06:00 Assessment and Plan (1) Acute exacerbation of chronic obstructive pulmonary disease (COPD) Status: Acute (2) Left shoulder pain Status: Acute (3) Limitation of joint motion of left shoulder Status: Acute (4) Hypertension Status: Chronic
--- NOTE | 2018-04-06 15:46 | CP.PCM.DIS ---
Provider - Provider Date of Admission: 04/03/18 14:03 Attending physician: Jose Raul Machado MD Consults: 04/03/18 14:35 Pulmonology Consult Stat Comment: Consulting Provider: Nav Dickens Consulting Physician: Nav Dickens Reason for Consult: COPD exacerbation Time Spent in preparation of Discharge (in minutes): 35 Diagnosis - Discharge Diagnosis (1) Acute exacerbation of chronic obstructive pulmonary disease (COPD) Status: Acute Priority: High (2) COPD (chronic obstructive pulmonary disease) Status: Chronic (3) Hypertension Status: Chronic Priority: High Hospital Course - Lab Results Lab Results: Micro Results 04/05/18 16:40 Sputum Gram Stain - Final 04/05/18 16:40 Sputum Sputum Culture - Preliminary NORMAL ORAL JOHN 04/03/18 06:48 Naris MRSA Culture (Admit) - Final MRSA NOT DETECTED Most Recent Lab Values WBC 9.6 K/uL (4.8-10.8) 04/06/18 06:00 RBC 4.23 Mil/uL (4.40-5.90) L 04/06/18 06:00 Hgb 14.1 g/dL (12.0-18.0) 04/06/18 06:00 Hct 43.2 % (35.0-51.0) 04/06/18 06:00 MCV 102.3 fl (80.0-94.0) H D 04/06/18 06:00 MCH 33.4 pg (27.0-31.0) H 04/06/18 06:00 MCHC 32.7 g/dL (33.0-37.0) L 04/06/18 06:00 RDW 13.3 % (11.5-14.5) 04/06/18 06:00 Plt Count 156 K/uL (130-400) 04/06/18 06:00 MPV 9.4 fl (7.2-11.7) 04/06/18 06:00 Neut % (Auto) 90.3 % (50.0-75.0) H 04/06/18 06:00 Lymph % (Auto) 5.1 % (20.0-40.0) L 04/06/18 06:00 [place] % (Auto) 4.5 % (0.0-10.0) 04/06/18 06:00 Eos % (Auto) 0.0 % (0.0-4.0) 04/06/18 06:00 Baso % (Auto) 0.1 % (0.0-2.0) 04/06/18 06:00 Neut # (Auto) 8.6 K/uL (1.8-7.0) H 04/06/18 06:00 Lymph # (Auto) 0.5 K/uL (1.0-4.3) L 04/06/18 06:00 [place] # (Auto) 0.4 K/uL (0.0-0.8) 04/06/18 06:00 Eos # (Auto) 0.0 K/uL (0.0-0.7) 04/06/18 06:00 Baso # (Auto) 0.0 K/uL (0.0-0.2) 04/06/18 06:00 Neutrophils % (Manual) 87 % (42-75) H 04/06/18 06:00 Band Neutrophils % 3 % (0-2) H 04/06/18 06:00 Lymphocytes % (Manual) 6 % (20-50) L 04/06/18 06:00 Monocytes % (Manual) 4 % (0-10) 04/06/18 06:00 Platelet Estimate Normal (NORMAL) 04/06/18 06:00 Plt Clumps, EDTA Present 04/04/18 04:37 Large Platelets Present 04/06/18 06:00 RBC Morphology Normal (NORMAL) 04/05/18 04:16 Macrocytosis (manual) Slight 04/06/18 06:00 pCO2 34 mm/Hg (35-45) L 04/03/18 15:01 pO2 61 mm/Hg (80-100) L 04/03/18 15:01 HCO3 23.9 mmol/L (21-28) 04/03/18 15:01 ABG pH 7.43 (7.35-7.45) 04/03/18 15:01 ABG Total CO2 23.6 mmol/L (22-28) 04/03/18 15:01 ABG O2 Saturation 94.4 % (95-98) L 04/03/18 15:01 ABG O2 Content 18.4 ML/dL (15-23) 04/03/18 15:01 ABG Base Excess -1.1 mmol/L (-2.0-3.0) 04/03/18 15:01 ABG Hemoglobin 14.5 g/dL (11.7-17.4) 04/03/18 15:01 ABG Carboxyhemoglobin 2.8 % (0.5-1.5) H 04/03/18 15:01 POC ABG HHb (Measured) 5.3 % (0.0-5.0) H 04/03/18 15:01 ABG Methemoglobin 1.9 % (0.0-3.0) 04/03/18 15:01 ABG O2 Capacity 19.5 mL/dL (16-24) 04/03/18 15:01 [place] Test Yes 04/03/18 15:01 A-a O2 Difference 96.0 mm/Hg 04/03/18 15:01 Hgb O2 Saturation 90.1 % (95.0-98.0) L 04/03/18 15:01 Vent Mode N/c 04/03/18 15:01 FiO2 28.0 % 04/03/18 15:01 Sodium 139 mmol/l (132-148) 04/06/18 06:00 Potassium 5.5 MMOL/L (3.6-5.0) H 04/06/18 06:00 Chloride 105 mmol/L (98-107) 04/06/18 06:00 Carbon Dioxide 27 mmol/L (22-30) 04/06/18 06:00 Anion Gap 13 (10-20) 04/06/18 06:00 BUN 45 mg/dl (9-20) H 04/06/18 06:00 Creatinine 0.9 mg/dl (0.8-1.5) 04/06/18 06:00 Est GFR ( Amer) > 60 04/06/18 06:00 Est GFR (Non-Af Amer) > 60 04/06/18 06:00 Random Glucose 162 mg/dL (75-110) H 04/06/18 06:00 Calcium 8.7 mg/dL (8.4-10.2) 04/06/18 06:00 Troponin I 0.0680 ng/mL (0.00-0.120) 04/03/18 12:17 NT-Pro-B Natriuret Pep 763 pg/ml (0-900) 04/03/18 16:45 Influenza Typ A,B (EIA) Negative for flu a/b (NEGATIVE) 04/03/18 12:17 Ur L.pneumophila Ag Negative (NEGATIVE) 04/05/18 15:50 - Hospital Course Hospital Course: 67 y/o M with PMHx of HTN and COPD presents to ED complaining of dyspnea, 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 Patient evaluated in ED. CBC, CMP unremarkable. Troponins 0.0680, Influenza A/B Negative. Patient also received Duoneb x 3, Mg sulf 2 gm, Azithromycin 500 mg, solumedrol 125 mg in ED CXR: No acute infiltrates. EKG unremarkable. Patient diagnosed with acute COPD exacerbation and started on Azithromycin, Duoneb Q4hr, Albuterol Q6hr PRN, solumedrol and losartan. Patient continued to improve over next 2 days requiring 3L O2 via NC and maintained O2 sat >92%. Patient maintained O2 sat >88% w/o O2. CT chest showed tree in bud opacity in RLL. Losartan D/C and patient switched to HCTZ 12.5 due to hyperkelemia. Patient remianed stable and cleared to be DC home on Anoro inhaler, Medrol dosepack and albuterol inhaler by Dr. Dickens. Patient to F/U with Dr. Dickens on outpatient basis. Discharge Medications - Medrol dosepack, Take as directed - Anoro Ellipta 1 puff daily - Albuterol INH Q4-6hr PRN for wheezing - Atrovent 1 puff BID - Azithromycin 250 mg PO daily Discharge Exam - Head Exam Head Exam: ATRAUMATIC, NORMOCEPHALIC - Eye Exam Eye Exam: EOMI, Normal appearance - ENT Exam ENT Exam: Mucous Membranes Moist - Neck Exam Neck exam: Full Rom - Respiratory Exam Respiratory Exam: Decreased Breath Sounds, Clear to PA & Lateral. absent: Rales, Rhonchi, Wheezes, Respiratory Distress - Cardiovascular Exam Cardiovascular Exam: REGULAR RHYTHM, +S1, +S2 - GI/Abdominal Exam GI & Abdominal Exam: Normal Bowel Sounds, Soft. absent: Distended, Tenderness - Neurological Exam Neurological exam: Alert, Altered, Oriented x3 - Psychiatric Exam Psychiatric exam: Normal Affect, Normal Mood - Skin Skin Exam: Dry, Intact, Normal Color, Warm Discharge Plan - Discharge Medications Prescriptions: Azithromycin [Zithromax] 250 mg PO DAILY #2 tab Methylprednisolone [Medrol Dose Pack (21 tabs)] 4 mg PO ASDIR #21 mg - Follow Up Plan Condition: STABLE Disposition: HOME/ ROUTINE Instructions: Exacerbation of COPD (DC) Additional Instructions: follow up with Dr. Dickens in 1 week Referrals: Nav Dickens MD [Staff Provider] -
[2018-04-07] MEDS ORDERED: Insulin Regular 100 units/ml IV ONE (07:45)
[2018-04-09 02:34] VITALS: O2SAT 90
== END 2018-04-06 14:12 | disposition home or self-care (01) | DRG 192 ==
LOC: H.ER 11:11 → H.ERHOLD 14:03 → H.ICU/CCU 15:09 → H.MEDSURG1 04-05 17:40
DX: J44.1 Chronic obstructive pulmonary disease with (acute) exacerbation (principal); Z80.8 Family history of malignant neoplasm of other organs or systems; I10 Essential (primary) hypertension; F17.210 Nicotine dependence, cigarettes, uncomplicated; M25.512 Pain in left shoulder; M25.612 Stiffness of left shoulder, not elsewhere classified; M54.5 Low back pain; G89.29 Other chronic pain